=== PATIENT | female | born 1965 | race Caucasian/White ===

== ENCOUNTER 2020-12-25 11:59 | Outpatient (REF) | payer OTHER, SELFPAY ==
[2020-12-25 13:01] LABS: Hematocrit 41.8 % (37-47); Hemoglobin 11.9 g/dl (12.0-16.0); Mean Corpuscular HGB Conc 28.5 g/dl (31.0-35.0); Mean Corpuscular Hemoglobin 22.8 pg (27.0-33.0); Mean Corpuscular Volume 80.1 fL (80-98); Mean Platelet Volume 11.7 fL (9.4-12.3); Platelet Count 367 X10*3/uL (160-400); Red Blood Count 5.22 X10*6/uL (4.20-5.50); Red Cell Distribution Width 16.5 % (11.0-16.0); White Blood Count 10.2 X10*3/uL (4.8-10.8)
[2020-12-25 13:42] LABS: Estimated Average Glucose 200 mg/dL; Hemoglobin A1c % 8.6 %
[2020-12-25 13:57] LABS: Alanine Aminotransferase 11 U/L (0-31); Albumin Level 3.2 g/dL (3.5-5.0); Alkaline Phosphatase 207 U/L (39-117); Anion Gap 13 (12-20); Aspartate Amino Transferase 12 U/L (5-31); Bilirubin Direct < 0.2 mg/dL (0.0-0.5); Bilirubin Total 0.2 mg/dL (0.0-1.0); Blood Urea Nitrogen 19 mg/dL (9-16); Carbon Dioxide 30 mmol/L (22-29); Chloride 104 mmol/L (96-108); Cholesterol 192 mg/dL; Estimated Glomerular Filt Rate 47; Glucose Random 195 mg/dL (60-115); HDL Cholesterol 39 mg/dL; LDL Cholesterol Calculated 132 mg/dl; Potassium 4.9 mmol/L (3.3-5.1); Sodium 142 mmol/L (135-145); Total Protein 6.5 g/dL (6.5-8.0); Triglycerides 109 mg/dL
[2020-12-25 14:01] LABS: Thyroid Stimulating Hormone 2.08 uIU/mL (0.32-4.0)
[2020-12-25 14:25] LABS: Folate 7.4 ng/mL (> or = 4.0); Vitamin B12 504 pg/mL (200-900)
[2020-12-30 13:12] LABS: Vitamin D 25-OH, D2 <4 ng/mL; Vitamin D 25-OH, D3 11 ng/mL; Vitamin D 25-OH, Total 11 ng/mL (30-100)
== END 2020-12-25 12:00 | disposition home or self-care (01) ==
LOC: HO.LAB 11:59
PROVIDERS: PCP Internal Medicine; Visit Provider Internal Medicine
DX: E11.9 Type 2 diabetes mellitus without complications (principal)
CPT/HCPCS: 36415; 80048; 80061; 80076; 82306; 82607; 82746; 83036; 84443; 85027

== ENCOUNTER 2021-12-09 09:18 | Outpatient (REF) | payer OTHER, SELFPAY ==
[2021-12-09 09:41] LABS: MANUAL DIFF FLAG NO
[2021-12-09 10:18] LABS: Basophils Percent Auto 0.3 % (0-2); Eosinophils Absolute Auto 0.2 X10*3/uL (0.0-0.4); Eosinophils Percent Auto 1.9 % (0-4); Hematocrit 35.9 % (37.0-47.0); Hemoglobin 10.2 g/dl (12.0-16.0); Imm Gran Abs Auto 0.05 X10*3/uL (0.00-0.03); Imm Gran Pct Auto 0.5 % (0.0-0.4); Lymphocytes Absolute Auto 1.5 X10*3/uL (1.2-4.9); Lymphocytes Percent Auto 16.1 % (20-40); Mean Corpuscular HGB Conc 28.4 g/dl (31.0-35.0); Mean Corpuscular Hemoglobin 23.3 pg (27.0-33.0); Mean Corpuscular Volume 82.2 fL (80.0-98.0); Mean Platelet Volume 10.8 fL (9.4-12.3); Monocytes Absolute Auto 0.5 X10*3/uL (0.1-1.2); Monocytes Percent Auto 5.6 % (2-11); Neutrophils Absolute Auto 7.2 x10*3/uL (2.0-8.3); Neutrophils Percent Auto 75.6 % (45-73); Platelet Count 329 X10*3/uL (160-400); Red Blood Count 4.37 X10*6/uL (4.20-5.50); Red Cell Distribution Width 16.5 % (11.0-16.0); White Blood Count 9.5 X10*3/uL (4.8-10.8)
[2021-12-09 10:23] LABS: Estimated Average Glucose 128 mg/dL; Hemoglobin A1c % 6.1 %
[2021-12-09 11:00] LABS: Alanine Aminotransferase 7 U/L (0-31); Albumin Level 3.1 g/dL (3.5-5.0); Alkaline Phosphatase 145 U/L (39-117); Anion Gap 15 (12-20); Aspartate Amino Transferase 11 U/L (5-31); Bilirubin Direct < 0.2 mg/dL (0.0-0.5); Bilirubin Total 0.4 mg/dL (0.0-1.0); Blood Urea Nitrogen 21 mg/dL (9-16); Calcium 8.3 mg/dL (8.4-10.2); Carbon Dioxide 30 mmol/L (22-29); Chloride 104 mmol/L (96-108); Cholesterol 174 mg/dL; Estimated Glomerular Filt Rate 32; Glucose Fasting 105 mg/dL (60-99); HDL Cholesterol 40 mg/dL; LDL Cholesterol Calculated 115 mg/dl; Potassium 4.6 mmol/L (3.3-5.1); Sodium 144 mmol/L (135-145); Total Protein 6.7 g/dL (6.5-8.0); Triglycerides 98 mg/dL
[2021-12-09 11:05] LABS: Thyroid Stimulating Hormone 3.01 uIU/mL (0.32-4.0)
[2021-12-09 11:07] LABS: Creatinine Urine 79.02 mg/dL
== END 2021-12-09 09:19 | disposition home or self-care (01) ==
LOC: HO.LAB 09:18
PROVIDERS: Absent Provider Nurse Practitioner Family; PCP Internal Medicine; Visit Provider Internal Medicine
DX: E11.9 Type 2 diabetes mellitus without complications (principal); I10 Essential (primary) hypertension; E78.00 Pure hypercholesterolemia, unspecified; H43.12 Vitreous hemorrhage, left eye; Z79.4 Long term (current) use of insulin
CPT/HCPCS: 36415; 80048; 80053; 80061; 80076; 82043; 82248; 83036; 84443; 85025; 85027

== ENCOUNTER → 2022-01-08 09:16 | Outpatient (REF) | payer OTHER, SELFPAY | LOC: HO.SL 09:16 | PROVIDERS: PCP Internal Medicine; Visit Provider Nurse Practitioner Family | DX: Z13.89 Encounter for screening for other disorder (principal) ==

== ENCOUNTER 2022-11-25 15:03 | Outpatient (AMB) | payer OTHER, SELFPAY ==
--- NOTE | 2022-11-25 15:05 | A.OFFPC_ITS ---
Vital Signs 11/25/22 15:07 11/25/22 15:52 Height 5 ft 3 in Weight 345 lb BMI 61.1 BP 158/90 H 150/90 H Blood Pressure Location Lt radial Lt brachial Position Sitting Sitting Pulse 72 Pulse Source Pulse Oximeter Pulse Oximetry (%) 92 Oxygen Delivery Method Room Air Intake Visit Reasons: Transfer of care from Dr. Carrol Verduzco Note: Patient here transferring from Dr Richardson Elastic Attacher Coverstitch Required: No Accompanied by: Son Allergies hydralazine Adverse Reaction (Severe, Verified 11/25/22 15:29) water retention, bloating duloxetine Adverse Reaction (Severe, Uncoded 11/25/22 15:29) nausea Medication List - Last Reconciled 11/25/22 by Asia Ray MD amlodipine 10 mg PO DAILY 90 days atorvastatin 80 mg PO DAILY blood pressure monitor As directed blood sugar diagnostic (FreeStyle Lite Strips) As directed 3x daily blood sugar diagnostic (FreeStyle Precision Mj Strips) As directed blood-glucose meter (FreeStyle Lite Meter kit) As directed buspirone 5 mg PO BID cholecalciferol (vitamin D3) 50 mcg PO DAILY diaper,brief,adult,disposable (Briefs, Adult-Extra Large) Pull up Brief size XL - 4 daily ferrous sulfate 325 mg PO DAILY insulin aspart U-100 (Novolog U-100 Insulin aspart) 20 units (0.2 mL) subcut TID MDD 100u insulin glargine U-300 conc (Toujeo SoloStar U-300 Insulin) 30 units (0.1 mL) subcut BEDTIME 30 days lancets (FreeStyle Lancets) As directed 3x daily metoprolol succinate ER 50 mg PO DAILY miscellaneous medical supply 1 ea miscellaneous 8x daily; 30 days miscellaneous medical supply 1 pair of diabetic shoes with insoles miscellaneous; omeprazole 20 mg PO QAM [oxygen tubing As directed] [pulse oximeter As directed] quetiapine 25 mg PO BEDTIME Shower Chair As directed Tobacco use date assessed: 06/26/22 Dental Screening Dental Screen Date: 11/25/22 Did you have a dental visit in the last 12 months?: No Did you have a dental problem in the last 6 months where you did not have access to dental care?: No Was dental information given to patient?: Patient declined HPI HPI Comments History of Present Illness Details This is a 57-year-old female with diabetes mellitus type 2 on long-term current use of insulin, hypertension, hyperlipidemia, super super obesity and moderate major depression that comes today accompanied by her son for follow-up on her conditions. A1c is close to goal and her son would like her to see endocrinology. Blood pressure elevated and she complains that hydralazine cause edema which I think is amlodipine. I will discontinue amlodipine and restart hydralazine. Blood pressure will be recheck in 3 weeks by nurse navigator. Lipid panel was order and her LDL goal should be less than 70. She is super super obese with BMI of 61.1 and is interested in in weight loss surgery. Will be referred to weight management. No chest pain. Complains of dyspnea on exertion and use oxygen at night. Will be referred to pulmonology. [facility] Medical History (Updated 11/25/22 @ 15:54 by Asia Ray MD) Diabetes mellitus Surgical History History of ovarian cyst History of tubal ligation Family History Mother No problems noted. Father No problems noted. Social History Housing: House Alcohol intake: never Patient Tobacco Use Status: Never used Tobacco e-Cigarette/Vaping Use: Never Used Second Hand Smoke Exposure: No service: No Current occupational status: disabled Cognitive needs: Yes (cane) Hearing needs: No Vision needs: No Questionnaire PHQ-9 Over the last 2 weeks, how often have you been bothered by any of the following problems? 1. Little interest or pleasure in doing things: nearly every day 2. Feeling down, depressed, or hopeless: several days 3. Trouble falling or staying asleep, or sleeping too much: nearly every day 4. Feeling tired or having little energy: several days 5. Poor appetite or overeating: nearly every day 6. Feeling bad about yourself - or that you are a failure or have let yourself or your family down: nearly every day 7. Trouble concentrating on things, such as reading the newspaper or watching television: not at all 8. Moving or speaking so slowly that other people could have noticed. Or the opposite - being so fidgety or restless that you have been moving around a lot more than usual: not at all 9. Thoughts that you would be better off or of hurting yourself in some way: not at all Total score: 14 Depression Screening Interpretation: Positive Depression Screening Follow-up: Existing condition and In treatment 79492 - PHQ-9 Billing: Yes Source: Developed by Drs. Farhat Crane, Joe Levy and colleagues, with an educational keagan from [employer]. Thrive Questionnaire Date Thrive assessed: 05/29/22 CASANDRA-7 AMB Questionnaire CASANDRA-7 Date CASANDRA - 7 assessed: 11/25/22 Feeling nervous, anxious, or on edge: 3 = Nearly every day Not being able to stop or control worryin = Several days Worrying too much about different things: 2 = More than half the days Trouble relaxin = Not at all Being so restless that it is hard to sit still: 0 = Not at all Becoming easily annoyed or irritable: 0 = Not at all Feeling afraid as if something awful might happen: 1 = Several days Total CASANDRA-7 score (0-4 normal; 5-9 mild; 10-14 moderate; 15-21 severe): 7 Source: Developed by Drs. Farhat Crane, Joe Levy and colleagues, with an educational keagan from [employer]. CASANDRA-7 Assessment Billing CASANDRA-7 Assessment Tool: CASANDRA-7 Assessment 15182 Review of Systems Const All systems reviewed & are unremarkable except as noted in HPI and below Eyes Reports no additional complaints, Denies change in vision and Denies other visual disturbances Card Denies chest pain at rest, Denies chest pain with activity, Denies edema, Denies irregular heart rhythm, Denies claudication, Denies dyspnea, Denies dyspnea on exertion, Denies orthopnea, Denies paroxysmal nocturnal dyspnea and Denies slow heart rate Resp Denies cough, Denies dyspnea and Denies dyspnea on exertion GI Denies abdominal pain, Denies change in bowel habits, Denies excessive flatus, Denies nausea and Denies vomiting Denies urinary incontinence, Denies urinary hesitancy and Denies urinary urgency Musc Denies abnormal gait, Denies atrophy, Denies deformity and Denies limited range of motion Skin/Breast Denies bleeding lesions, Denies changing lesions and Denies rash Neuro Denies abnormal gait and Denies lack of coordination Physical exam (Primary Care) Vital Signs: Last Vital Signs Pulse 72 11/25/22 15:07 BP 158/90 H 11/25/22 15:07 Pulse Ox 92 11/25/22 15:07 Oxygen Delivery Method Room Air 11/25/22 15:07 BMI result Body Mass Index 61.1 Tobacco/Smoking Status: Tobacco use Status Tobacco use date assessed 06/26/22 11/25/22 15:06 Patient Tobacco Use Status Never used Tobacco 11/25/22 15:06 e-Cigarette/Vaping Use Never Used 11/25/22 15:06 PHQ-9: PHQ-9 Score PHQ-9: Total score 14 11/25/22 15:25 Depression Screening Interpretation: Positive Depression Screening Follow-up: Existing condition and In treatment Thrive Assessment: Date of Thrive Assessment Date Thrive assessed 05/29/22 11/25/22 15:06 Eyes General: appearance normal, both eyes and all related structures Eyelids: Yes eyelids normal Conjunctivae: conjunctivae normal Neck Neck: Yes normal visual inspection and Yes supple Resp Effort & Inspection: normal respiratory effort Auscultation: clear to auscultation bilaterally Cardio Jugular venous distension: no JVD Rate: regular rate Rhythm: regular rhythm Heart sounds: S1 normal heart sound present and S2 normal heart sound present Extrem General: Yes full ROM Results AMB Hemoglobin A1c AMB Hemoglobin A1c 7.3 % Last Edit by JUDI Pleitez on 11/25/22 15:2 6 Results Reviewed Results Reviewed: Laboratory Last Values Hgb A1c (Clinic) 7.3 % (4.0-6.0) H 11/25/22 15:26 Assessment and Plan Assessment & Plan (1) Type 2 diabetes mellitus: Code(s): E11.9 - Type 2 diabetes mellitus without complications Plan: Continue insulin. Referred to endocrinology. A1c goal is equal or less than 7%. (2) Super-super obese: Code(s): E66.01 - Morbid (severe) obesity due to excess calories Plan: Referred to weight management. BMI goal is less than 30. (3) Hypertension: Code(s): I10 - Essential (primary) hypertension Plan: Discontinue amlodipine. Restart hydralazine. Blood pressure goal is equal or less than 130/80. Recheck blood pressure with nurse navigator in 3 weeks. (4) Hyperlipidemia LDL goal <70: Code(s): E78.5 - Hyperlipidemia, unspecified Plan: Continue statins. Repeat lipid panel. LDL goal is less than 70. (5) Moderate major depression: Code(s): F32.1 - Major depressive disorder, single episode, moderate Plan: Continue Seroquel. Orders: Orders Vitamin B12 and Folate Today E53.8 - Deficiency of other specified B group vitamins IRON PROFILE Today D64.9 - Anemia, unspecified Lipid Panel Today E78.5 - Hyperlipidemia, unspecified Vitamin D 25-OH Total Today E55.9 - Vitamin D deficiency, unspecified Microalbumin, Random (w Creat) Today E11.9 - Type 2 diabetes mellitus without complications Complete Blood Count Auto Diff Today D64.9 - Anemia, unspecified NT-proBNP Today R60.0 - Localized edema XR DEXA axial skeleton Today N95.9 - Unspecified menopausal and perimenopausal disorder MM screening mammo BI Today R60.0 - Localized edema, Z12.31 - Encounter for screening mammogram for malignant neoplasm of breast AMB Hemoglobin A1c Today E11.9 - Type 2 diabetes mellitus without complications Referrals Endocrinology Referral E11.9 - Type 2 diabetes mellitus without complications Medical Weight Management Referral R60.0 - Localized edema ASSISTANT HALL DIRECTOR Referral Z12.4 - Encounter for screening for malignant neoplasm of cervix Pulmonology Referral Z99.81 - Dependence on supplemental oxygen Medications: New nystatin 1 appl topical BID 15 days PRN 30 grams 1RF rash Discontinued amlodipine Discontinued Reason: Patient Completed Course 10 mg PO DAILY 90 days 90 tabs 2RF I10 - Essential (primary) hypertension Coding Level of Care Code Est Pt Level 4 (17485) Diagnoses Type 2 diabetes mellitus E11.9 Super-super obese E66.01 Hypertension I10 Hyperlipidemia LDL goal <70 E78.5 Moderate major depression F32.1 Additional Codes CASANDRA-7 Assessment Billing - CASANDRA-7 Assessment Tool: CASANDRA-7 Assessment [id number] ([id number]) Time Spent (min) 26
[2022-11-25 15:07] VITALS: BP 158/90; PULSE 72; O2SAT 92; BMI 61.1
[2022-11-25 15:52] VITALS: BP 150/90
== END 2022-11-25 15:47 | disposition home or self-care (01) ==
PROVIDERS: PCP Internal Medicine; Visit Provider Internal Medicine
DX: E11.69 Type 2 diabetes mellitus with other specified complication (principal); E66.01 Morbid (severe) obesity due to excess calories; F32.1 Major depressive disorder, single episode, moderate; Z68.44 Body mass index [BMI] 60.0-69.9, adult; I10 Essential (primary) hypertension; E78.5 Hyperlipidemia, unspecified
CPT/HCPCS: 83036; 96127; 99214

== ENCOUNTER 2023-07-01 10:12 | Outpatient (REF) | payer OTHER, SELFPAY ==
[2023-07-01 10:25] LABS: MANUAL DIFF FLAG NO
[2023-07-01 11:02] LABS: Basophils Absolute Auto 0.1 X10*3/uL (0.0-0.2); Basophils Percent Auto 0.6 % (0-2); Eosinophils Absolute Auto 0.2 X10*3/uL (0.0-0.4); Eosinophils Percent Auto 2.8 % (0-4); Hematocrit 47.9 % (37.0-47.0); Hemoglobin 13.9 g/dl (12.0-16.0); Imm Gran Abs Auto 0.04 X10*3/uL (0.00-0.03); Imm Gran Pct Auto 0.5 % (0.0-0.4); Lymphocytes Absolute Auto 1.4 X10*3/uL (1.2-4.9); Lymphocytes Percent Auto 17.6 % (20-40); Mean Corpuscular Hemoglobin 25.2 pg (27.0-33.0); Mean Corpuscular Volume 86.9 fL (80.0-98.0); Mean Platelet Volume 11.6 fL (9.4-12.3); Monocytes Absolute Auto 0.5 X10*3/uL (0.1-1.2); Monocytes Percent Auto 6.8 % (2-11); Neutrophils Absolute Auto 5.7 x10*3/uL (2.0-8.3); Neutrophils Percent Auto 71.7 % (45-73); Platelet Count 294 X10*3/uL (160-400); Red Blood Count 5.51 X10*6/uL (4.20-5.50); Red Cell Distribution Width 14.9 % (11.0-16.0)
[2023-07-01 11:57] LABS: Cholesterol 354 mg/dL (<200); HDL Cholesterol 58 mg/dL (>40); Iron 47 mcg/dL (30-160); LDL Cholesterol Calculated 267 mg/dL (<100); Percent Iron Saturation 24 % (15-50); Total Iron Binding Capacity 198 mcg/dL (228-428); Triglycerides 147 mg/dL (<150); Unsaturated Iron Binding 151 ug/dL
[2023-07-01 12:02] LABS: Vitamin D 25-OH Total 8.6 ng/mL (>30)
[2023-07-01 12:13] LABS: Creatinine Urine 85.71 mg/dL
[2023-07-01 12:31] LABS: Microalbum/Creatinine Ratio Ur 2333.4 ug/mg cr (<30); Microalbumin Urine > 2000.0 mg/L
[2023-07-01 15:15] LABS: Vitamin B12 475 pg/mL (200-900)
[2023-07-06 23:08] LABS: NT-proBNP 276 pg/mL (<125)
== END 2023-07-01 10:13 | disposition home or self-care (01) ==
LOC: HO.LAB 10:12
PROVIDERS: PCP Internal Medicine; Visit Provider Internal Medicine
DX: E78.5 Hyperlipidemia, unspecified (principal); E11.9 Type 2 diabetes mellitus without complications; D64.9 Anemia, unspecified; E53.8 Deficiency of other specified B group vitamins; E55.9 Vitamin D deficiency, unspecified; R60.0 Localized edema
CPT/HCPCS: 36415; 80061; 82043; 82306; 82570; 82607; 82746; 83540; 83880; 85025

== ENCOUNTER 2023-07-08 14:14 | Outpatient (AMB) | payer OTHER, SELFPAY ==
--- NOTE | 2023-07-08 14:22 | A.OFFPC_ITS ---
Vital Signs 07/08/23 14:23 07/08/23 15:33 Height 5 ft 3 in Weight 333 lb BMI 59.0 BP 152/88 H 150/90 H Blood Pressure Location Lt brachial Lt brachial Position Sitting Sitting Intake Visit Reasons: BP F/U Intake Note: Patient here for a follow up BP, DM Hotel Attendant Required: No Accompanied by: Self / Same As Patient Allergies hydralazine Adverse Reaction (Severe, Verified 07/08/23 14:36) water retention, bloating duloxetine Adverse Reaction (Severe, Uncoded 07/08/23 14:36) nausea Medication List - Last Reconciled 07/08/23 by Asia Ray MD [adult pullups As directed] [adult wipes As directed] atorvastatin 80 mg PO DAILY [bedpads As directed] blood pressure monitor As directed blood sugar diagnostic (FreeStyle Lite Strips) As directed 3x daily blood-glucose meter (FreeStyle Lite Meter kit) As directed buspirone 5 mg PO BID disposable gloves As directed insulin aspart U-100 (Novolog U-100 Insulin aspart) 20 units (0.2 mL) subcut TID MDD 100u insulin glargine U-300 conc (Toujeo SoloStar U-300 Insulin) 30 units (0.1 mL) subcut BEDTIME 30 days lancets (FreeStyle Lancets) As directed 3x daily metoprolol succinate ER 50 mg PO DAILY 30 days miscellaneous medical supply 1 ea miscellaneous 8x daily; 30 days miscellaneous medical supply 1 pair of diabetic shoes with insoles miscellaneous; nystatin 1 appl topical BID PRN 15 days omeprazole 20 mg PO QAM [oxygen tubing As directed] [pulse oximeter As directed] quetiapine 25 mg PO BEDTIME Shower Chair As directed Tobacco use date assessed: 07/08/23 Dental Screening Dental Screen Date: 07/08/23 Did you have a dental visit in the last 12 months?: No Did you have a dental problem in the last 6 months where you did not have access to dental care?: No Was dental information given to patient?: Patient declined HPI HPI Comments History of Present Illness Details This is a 57-year-old female with moderate major depression, super super obese, diabetes mellitus, hypertension and hyperlipidemia that comes today for follow-up on her conditions. Depression stable with Seroquel. She is super super obese with a BMI of 59 and was not able to go to weight management or any other referral because she likes to go where her son and her son was not available. A1c elevated and I will add Ozempic. Blood pressure elevated and I will add losartan and this will be recheck in 3 weeks by nurse navigator. LDL not on goal but she admits that she was out of atorvastatin and just restarted 3 days ago. No chest pain or shortness of breath. Has microalbuminuria and will be referred again to Nephrology. [facility] Medical History (Updated 07/08/23 @ 15:38 by Asia Ray MD) Acute kidney injury superimposed on CKD Acute respiratory failure with hypoxia Vitreous hemorrhage of left eye Diabetes mellitus Surgical History History of ovarian cyst History of tubal ligation Family History Mother No problems noted. Father No problems noted. Social History Housing: House Alcohol intake: never Patient Tobacco Use Status: Never used Tobacco e-Cigarette/Vaping Use: Never Used Second Hand Smoke Exposure: No service: No Current occupational status: disabled Cognitive needs: Yes (cane) Hearing needs: No Vision needs: No Questionnaire PHQ-9 Over the last 2 weeks, how often have you been bothered by any of the following problems? 1. Little interest or pleasure in doing things: several days 2. Feeling down, depressed, or hopeless: several days 3. Trouble falling or staying asleep, or sleeping too much: several days 4. Feeling tired or having little energy: several days 5. Poor appetite or overeating: several days 6. Feeling bad about yourself - or that you are a failure or have let yourself or your family down: several days 7. Trouble concentrating on things, such as reading the newspaper or watching television: not at all 8. Moving or speaking so slowly that other people could have noticed. Or the opposite - being so fidgety or restless that you have been moving around a lot more than usual: not at all 9. Thoughts that you would be better off or of hurting yourself in some way: not at all Total score: 6 Depression Screening Interpretation: Positive Depression Screening Follow-up: Existing condition Depression Screening Done: Yes 54829 - PHQ-9 Billing: Yes Source: Developed by Drs. Farhat Crane, Stefania Whitman, Joe Olivarez and colleagues, with an educational keagan from [employer]. Thrive Questionnaire Date Thrive assessed: 07/08/23 I am a: Patient What is your living situation today?: I have a steady place to live Within the past 12 months, did the food you bought not last and you didn't have the money to get more?: Never true Within the past 12 months, did you worry whether your food would run out before you got money to buy more?: Never true Do you have trouble paying for medicines?: No Do you have trouble getting transportation to medical appointments?: No Do you have trouble paying your heating and electricity bill?: No Do you have trouble taking care of your child, family member or friend?: No Do you have trouble with day-to-day activities such as bathing, preparing meals, shopping, managing finances, etc.?: Yes Are you currently unemployed and looking for a job?: No Are you interested in more education?: No Please select the resources that you would like help with: None Currently or been in a relationship where the following occur: no concerns rep orted THRIVE Score: 0 AUDIT C Alcohol Use Questionnaire (AUDIT-C) 1. How often do you have a drink containing alcohol?: Never Total Score: 0 CASANDRA-7 AMB Questionnaire CASANDRA-7 Date CASANDRA - 7 assessed: 07/08/23 Feeling nervous, anxious, or on edge: 1 = Several days Not being able to stop or control worryin = Not at all Worrying too much about different things: 1 = Several days Trouble relaxin = Not at all Being so restless that it is hard to sit still: 0 = Not at all Becoming easily annoyed or irritable: 0 = Not at all Feeling afraid as if something awful might happen: 1 = Several days Total CASANDRA-7 score (0-4 normal; 5-9 mild; 10-14 moderate; 15-21 severe): 3 Source: Developed by Stefania Price J Carlos, Joe Olivarez and colleagues, with an educational keagan from [employer]. CASANDRA-7 Assessment Billing CASANDRA-7 Assessment Tool: CASANDRA-7 Assessment 37460 Review of Systems Const All systems reviewed & are unremarkable except as noted in HPI and below Eyes Reports no additional complaints, Denies change in vision and Denies other visual disturbances Card Denies chest pain at rest, Denies chest pain with activity, Denies edema, Denies irregular heart rhythm, Denies claudication, Denies dyspnea, Denies dyspnea on exertion, Denies orthopnea, Denies paroxysmal nocturnal dyspnea and Denies slow heart rate Resp Denies cough, Denies dyspnea and Denies dyspnea on exertion GI Denies abdominal pain, Denies change in bowel habits, Denies excessive flatus, Denies nausea and Denies vomiting Denies urinary incontinence, Denies urinary hesitancy and Denies urinary urgency Musc Denies abnormal gait, Denies atrophy, Denies deformity and Denies limited range of motion Skin/Breast Denies bleeding lesions, Denies changing lesions and Denies rash Neuro Denies abnormal gait, Denies behavioral changes and Denies lack of coordination Psych Denies behavioral changes Physical exam (Primary Care) Vital Signs: Last Vital Signs BP 152/88 H 07/08/23 14:23 BMI result Body Mass Index 59.0 Tobacco/Smoking Status: Tobacco use Status Tobacco use date assessed 07/08/23 07/08/23 14:30 Patient Tobacco Use Status Never used Tobacco 07/08/23 14:30 e-Cigarette/Vaping Use Never Used 07/08/23 14:30 PHQ-9: PHQ-9 Score PHQ-9: Total score 6 07/08/23 14:47 Depression Screening Interpretation: Positive Depression Screening Follow-up: Existing condition Thrive Assessment: Date of Thrive Assessment Date Thrive assessed 07/08/23 07/08/23 14:30 Currently or been in a relationship where the following occur: no concerns reported Eyes General: appearance normal, both eyes and all related structures Eyelids: Yes eyelids normal Conjunctivae: conjunctivae normal Neck Neck: Yes normal visual inspection and Yes supple Resp Effort & Inspection: normal respiratory effort Auscultation: clear to auscultation bilaterally Cardio Jugular venous distension: no JVD Rate: regular rate Rhythm: regular rhythm Heart sounds: S1 normal heart sound present and S2 normal heart sound present Extrem General: Yes full ROM Results AMB Hemoglobin A1c AMB Hemoglobin A1c 7.6 % Last Edit by JUDI Pleitez on 07/08/23 14:3 4 Results Reviewed Results Reviewed: Laboratory Last Values Hgb A1c (Clinic) 7.6 % (4.0-6.0) H 07/08/23 14:33 Assessment and Plan Assessment & Plan (1) Moderate major depression: Code(s): F32.1 - Major depressive disorder, single episode, moderate Plan: Continue Seroquel. (2) Super-super obese: Code(s): E66.01 - Morbid (severe) obesity due to excess calories Plan: Start diet and exercise as tolerated. BMI goal is less than 30. (3) Essential hypertension: Code(s): I10 - Essential (primary) hypertension Plan: Start losartan. Blood pressure goal is equal or less than 130/80. Recheck blood pressure with nurse navigator in 3 weeks. (4) Microalbuminuria: Code(s): R80.9 - Proteinuria, unspecified Plan: Referred to nephrology. (5) Type 2 diabetes mellitus: Code(s): E11.9 - Type 2 diabetes mellitus without complications Qualifiers: Diabetes mellitus car wash attendant automatic insulin use: with retirement use Diabetes mellitus complication status: with hyperglycemia Qualified Code(s): E11.65 - Type 2 diabetes mellitus with hyperglycemia; Z79.4 - detention (current) use of insulin Plan: Continue insulin. Start Ozempic. A1c goal is equal or less than 7%. (6) Hyperlipidemia LDL goal <70: Code(s): E78.5 - Hyperlipidemia, unspecified Plan: Be compliant with statins. LDL goal is less than 70. Orders: Orders AMB Hemoglobin A1c Today E11.9 - Type 2 diabetes mellitus without complications Microalbumin, Random (w Creat) 4 Months E11.9 - Type 2 diabetes mellitus without complications Lipid Panel 4 Months E78.5 - Hyperlipidemia, unspecified Comprehensive [place]. Panel Fast 4 Months I10 - Essential (primary) hypertension Referrals Nephrology Referral R80.9 - Proteinuria, unspecified Medications: New losartan 25 mg PO DAILY 90 days 90 tabs 1RF I10 - Essential (primary) hypertension semaglutide (Ozempic) for 4 weeks 0.25 mg (0.368 mL) subcut QWEEK 28 days 1.472 mL 0RF E11.9 - Type 2 diabetes mellitus without complications Refilled nystatin 1 appl topical BID 15 days PRN 30 grams 1RF rash Coding Level of Care Code Est Pt Level 4 (86565) Diagnoses Moderate major depression F32.1 Super-super obese E66.01 Essential hypertension I10 Microalbuminuria R80.9 Type 2 diabetes mellitus with hyperglycemia, with long-term current use of insulin E11.65; Z79.4 Diabetes mellitus car wash attendant automatic insulin use: with car wash attendant automatic use Diabetes mellitus complication status: with hyperglycemia Hyperlipidemia LDL goal <70 E78.5 Additional Codes CASANDRA-7 Assessment Billing - CASANDRA-7 Assessment Tool: CASANDRA-7 Assessment [id number] ([id number]) Time Spent (min) 24
[2023-07-08 14:23] VITALS: BP 152/88; BMI 59.0
[2023-07-08 15:33] VITALS: BP 150/90
== END 2023-07-08 14:51 | disposition home or self-care (01) ==
PROVIDERS: PCP Internal Medicine; Visit Provider Internal Medicine
DX: E11.65 Type 2 diabetes mellitus with hyperglycemia (principal); F32.1 Major depressive disorder, single episode, moderate; E66.01 Morbid (severe) obesity due to excess calories; Z68.43 Body mass index [BMI] 50.0-59.9, adult; Z79.4 Long term (current) use of insulin; I10 Essential (primary) hypertension; R80.9 Proteinuria, unspecified; E78.5 Hyperlipidemia, unspecified
CPT/HCPCS: 83036; 99214

== ENCOUNTER 2023-08-04 10:49 | Outpatient (AMB) | payer OTHER, SELFPAY ==
[2023-08-04 10:52] VITALS: BP 140/90; PULSE 85; BMI 56.6
--- NOTE | 2023-08-04 10:52 | HO.NEPHOV_ITS ---
HPI HPI Comments History of Present Illness Details I had the privilege of seeing Almaz in consultation for her chronic kidney disease and hypertension. She has a diabetic over 30 years. She has history of retinopathy and had laser treatments. She is known to have proteinuria. She is on angiotensin receptor ervin. She does not check her blood pressure at home. Her blood sugars are fair. She is trying to lose some weight. She denies any coronary artery disease, carotid stenosis, CVA, congestive heart failure, peripheral arterial disease, history of renal artery stenosis. She does not take any nonsteroidal anti-inflammatories. She has no history of hypercalcemia, new bone or back pain. She denies epistaxis, photosensitivity, skin rashes, orthostatic symptoms, nausea, vomiting, diarrhea, proximal nocturnal dyspnea, orthopnea, nephrolithiasis. Her recent serum creatinine was 1.67. [facility] Medical History (Updated 08/04/23 @ 13:11 by Dani Perkins MD) Acute kidney injury superimposed on CKD Acute respiratory failure with hypoxia Vitreous hemorrhage of left eye Diabetes mellitus Surgical History History of ovarian cyst History of tubal ligation Family History Mother No problems noted. Father No problems noted. Social History Housing: House Alcohol intake: never Patient Tobacco Use Status: Never used Tobacco e-Cigarette/Vaping Use: Never Used Second Hand Smoke Exposure: No service: No Current occupational status: disabled Cognitive needs: Yes (cane) Hearing needs: No Vision needs: No Vital Signs 08/04/23 10:52 Height 5 ft 3 in Weight 319 lb 8 oz BMI 56.6 BP 140/90 H Blood Pressure Location Lt radial Position Sitting Pulse 85 Pulse Source Pulse Oximeter Physical Exam Vital Signs: Last Vital Signs Pulse 85 08/04/23 10:52 BP 140/90 H 08/04/23 10:52 BMI result Body Mass Index 56.6 Const General: comfortable and no acute distress Orientation/consciousness: patient oriented x3 HEENT Head: Yes normocephalic Mouth: Normal oral and palatal mucosa present Eyes EOM: EOMs intact bilaterally Neck Neck: Yes supple Resp Auscultation: clear to auscultation bilaterally Cardio Jugular venous distension: no JVD Rate: regular rate GI Palpation (GI): Soft to palpation Auscultation: normal bowel sounds General: Yes no CVA tenderness Back/Spine/Pelvis Back: no CVA tenderness Skin General skin exam: no rashes or lesions noted Neuro General: patient oriented x3 and moves all extremities Assessment & Plan Assessment & Plan (1) CKD stage 3a, GFR 45-59 ml/min: Code(s): N18.31 - Chronic kidney disease, stage 3a (2) Hypertension: Code(s): I10 - Essential (primary) hypertension Qualifiers: Hypertension type: primary hypertension Qualified Code(s): I10 - Essential (primary) hypertension (3) Diabetic nephropathy: Code(s): E11.21 - Type 2 diabetes mellitus with diabetic nephropathy Qualifiers: Diabetes mellitus type: type 2 Qualified Code(s): E11.21 - Type 2 diabetes mellitus with diabetic nephropathy Plan 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 She has high BMI. She has diabetic nephropathy. She is on losartan. I have ordered workup including imaging studies. She will be a great candidate for SGLT 2 inhibitor which I intend to initiate at the next office visit after reviewing all the data. She was encouraged to maintain good hydration, lose weight and avoid nonsteroidal anti-inflammatories. I answered all questions. Follow-up appointment given. Orders: Orders Creatinine Today E11.21 - Type 2 diabetes mellitus with diabetic nephropathy, N18.31 - Chronic kidney disease, stage 3a Blood Urea Nitrogen Today E11.21 - Type 2 diabetes mellitus with diabetic nephropathy, N18.31 - Chronic kidney disease, stage 3a Electrolytes Today E11.21 - Type 2 diabetes mellitus with diabetic nephropathy, N18.31 - Chronic kidney disease, stage 3a Calcium Today E11.21 - Type 2 diabetes mellitus with diabetic nephropathy, N18.31 - Chronic kidney disease, stage 3a Proteinase 3 PR3 Antibodies Today E11.21 - Type 2 diabetes mellitus with diabetic nephropathy, N18.31 - Chronic kidney disease, stage 3a Anti Glomerular Basement Memb Today E11.21 - Type 2 diabetes mellitus with diabetic nephropathy, N18.31 - Chronic kidney disease, stage 3a Complement C4 Today E11.21 - Type 2 diabetes mellitus with diabetic nephropathy, N18.31 - Chronic kidney disease, stage 3a Immunofixation Pnl, Serum Today E11.21 - Type 2 diabetes mellitus with diabetic nephropathy, N18.31 - Chronic kidney disease, stage 3a UA and rflx microscopic Today E11.21 - Type 2 diabetes mellitus with diabetic nephropathy, N18.31 - Chronic kidney disease, stage 3a Anti DNA DS Antibody Today E11.21 - Type 2 diabetes mellitus with diabetic nephropathy, N18.31 - Chronic kidney disease, stage 3a Myeloperoxidase Antibody Today E11.21 - Type 2 diabetes mellitus with diabetic nephropathy, N18.31 - Chronic kidney disease, stage 3a Complement C3 Today E11.21 - Type 2 diabetes mellitus with diabetic nephropathy, N18.31 - Chronic kidney disease, stage 3a Phospholipase A2 Receptor Pnl Today E11.21 - Type 2 diabetes mellitus with diabetic nephropathy, N18.31 - Chronic kidney disease, stage 3a Immunofixation, Random Urine Today E11.21 - Type 2 diabetes mellitus with diabetic nephropathy, N18.31 - Chronic kidney disease, stage 3a US renal BI Today E11.21 - Type 2 diabetes mellitus with diabetic nephropathy, I10 - Essential (primary) hypertension, N18.31 - Chronic kidney disease, stage 3a Coding Level of Care Code New Pt Level 4 (72758) Diagnoses CKD stage 3a, GFR 45-59 ml/min N18.31 Primary hypertension I10 Hypertension type: primary hypertension Diabetic nephropathy associated with type 2 diabetes mellitus E11. Diabetes mellitus type: type 2 Results Reviewed Nephrology Results: Hgb 13.9 g/dl (12.0-16.0) 07/01/23 WBC 8.0 X10*3/uL (4.8-10.8) 07/01/23 Plt Count 294 X10*3/uL (160-400) 07/01/23 Urine Creatinine 85.71 mg/dL 07/01/23
== END 2023-08-04 11:25 | disposition home or self-care (01) ==
PROVIDERS: PCP Internal Medicine; Referring Provider Internal Medicine; Visit Provider Internal Medicine Nephrology
DX: N18.31 Chronic kidney disease, stage 3a (principal); I10 Essential (primary) hypertension; E11.21 Type 2 diabetes mellitus with diabetic nephropathy
CPT/HCPCS: 99204

== ENCOUNTER → 2023-08-04 10:49 | Outpatient (BNVA) | payer OTHER, SELFPAY | PROVIDERS: PCP Internal Medicine; Referring Provider Internal Medicine; Visit Provider Internal Medicine Nephrology | DX: E11.22 Type 2 diabetes mellitus with diabetic chronic kidney disease (principal); I12.9 Hypertensive chronic kidney disease with stage 1 through stage 4 chronic kidney disease, or unspecified chronic kidney disease; N18.32 Chronic kidney disease, stage 3b; E11.21 Type 2 diabetes mellitus with diabetic nephropathy | CPT/HCPCS: 99202 ==

== ENCOUNTER 2024-01-18 09:59 | Outpatient (REF) | payer OTHER, SELFPAY ==
[2024-01-18 12:06] LABS: Alanine Aminotransferase 17 U/L (0-31); Alkaline Phosphatase 212 U/L (39-117); Anion Gap 13 (12-20); Aspartate Amino Transferase 17 U/L (5-31); Bilirubin Total 0.2 mg/dL (0.0-1.0); Blood Urea Nitrogen 17 mg/dL (9-16); Calcium 8.5 mg/dL (8.4-10.2); Carbon Dioxide 27 mmol/L (22-29); Chloride 109 mmol/L (96-108); Cholesterol 200 mg/dL (<200); Estimated Glomerular Filt Rate 24; Glucose Fasting 172 mg/dL (60-99); HDL Cholesterol 44 mg/dL (>40); LDL Cholesterol Calculated 134 mg/dL (<100); Potassium 4.4 mmol/L (3.3-5.1); Sodium 145 mmol/L (135-145); Total Protein 7.1 g/dL (6.5-8.0); Triglycerides 111 mg/dL (<150)
[2024-01-18 12:06] LABS: Creatinine Urine 155.89 mg/dL
[2024-01-18 12:13] LABS: Microalbum/Creatinine Ratio Ur 1282.9 ug/mg cr (<30); Microalbumin Urine > 2000.0 mg/L
== END 2024-01-18 10:00 | disposition home or self-care (01) ==
LOC: HO.LAB 09:59
PROVIDERS: PCP Internal Medicine; Visit Provider Internal Medicine
DX: E11.9 Type 2 diabetes mellitus without complications (principal); E78.5 Hyperlipidemia, unspecified; I10 Essential (primary) hypertension
CPT/HCPCS: 36415; 80053; 80061; 82043; 82570

== ENCOUNTER 2024-05-21 09:46 | Outpatient (REF) | payer OTHER, SELFPAY | END 2024-05-21 09:47 | disposition home or self-care (01) | LOC: HO.MAMMO 09:46 | PROVIDERS: PCP Internal Medicine; Visit Provider Internal Medicine | DX: Z12.31 Encounter for screening mammogram for malignant neoplasm of breast (principal) | CPT/HCPCS: 77063; 77067 ==

== ENCOUNTER → 2024-05-21 10:15 | Outpatient (BNV) | payer OTHER, SELFPAY | PROVIDERS: PCP Internal Medicine; Visit Provider Internal Medicine | DX: Z12.31 Encounter for screening mammogram for malignant neoplasm of breast (principal) | CPT/HCPCS: 77063; 77067 ==

== ENCOUNTER 2024-10-12 10:32 | Outpatient (AMB) | payer OTHER, SELFPAY ==
[2024-10-12 10:36] VITALS: BP 132/78; PULSE 68; O2SAT 94; BMI 51.4
--- NOTE | 2024-10-12 10:36 | A.OFFPC_ITS ---
Vital Signs 10/12/24 10:36 Height 5 ft 3 in Weight 290 lb BMI 51.4 BP 132/78 Blood Pressure Location Lt brachial Position Sitting Pulse 68 Pulse Source Pulse Oximeter Pulse Oximetry (%) 94 Oxygen Delivery Method Room Air Intake Visit Reasons: follow up Intake Note: Patient here for a follow up, c/o leg cramps Sql Server Architect Required: No Accompanied by: BASKET ASSEMBLER Allergies hydralazine Adverse Reaction (Severe, Verified 10/12/24 10:56) water retention, bloating duloxetine Adverse Reaction (Severe, Uncoded 10/12/24 10:56) nausea Medication List - Last Reconciled 10/12/24 by Asia Ray MD [adult pullups As directed] [adult wipes As directed] atorvastatin 80 mg PO DAILY [Bariatric Walker As directed] [Bariatric Wheelchair As directed] [bedpads As directed] blood pressure monitor As directed blood sugar diagnostic (FreeStyle Lite Strips) As directed 3x daily blood-glucose meter (FreeStyle Lite Meter kit) As directed buspirone 5 mg PO BID dapagliflozin propanediol (Farxiga) 10 mg PO DAILY disposable gloves As directed insulin aspart U-100 (Novolog U-100 Insulin aspart) 20 units (0.2 mL) subcut TID MDD 100u insulin glargine U-300 conc (Toujeo SoloStar U-300 Insulin) 30 units (0.1 mL) subcut BEDTIME 30 days lactulose 10 grams (15 mL) PO BEDTIME PRN 30 days lancets (FreeStyle Lancets) As directed 3x daily losartan 50 mg PO DAILY 90 days metoprolol succinate ER 50 mg PO DAILY 30 days miscellaneous medical supply 1 ea miscellaneous 8x daily; 30 days miscellaneous medical supply 1 pair of diabetic shoes with insoles miscellaneous; omeprazole 20 mg PO QAM [oxygen tubing As directed] [pulse oximeter As directed] quetiapine 25 mg PO BEDTIME Shower Chair As directed torsemide 20 mg PO DAILY Tobacco use date assessed: 10/12/24 Dental Screening Dental Screen Date: 10/12/24 Did you have a dental visit in the last 12 months?: No Did you have a dental problem in the last 6 months where you did not have access to dental care?: No Was dental information given to patient?: Patient declined HPI HPI Comments History of Present Illness Details The patient is a 59-year-old female presenting with uncontrolled Type 2 Diabetes Mellitus and vision impairment. The patient's diabetes has worsened, with a recent hemoglobin A1c of 11.7, up from a previous level of 7. She reports significant weight loss, which was unintentional, and attributes it to poor glycemic control. Her blood glucose levels have been as high as 400 mg/dL, and she is currently on NovoLog and Toujeo insulin regimens. The patient also reports vision impairment, which she associates with her poorly controlled diabetes. She receives injections in her eyes every three months and has an upcoming appointment for further evaluation. She has a history of hypertension, currently managed with losartan and metoprolol. Her blood pressure is reportedly well-controlled. The patient has chronic kidney disease, and her renal function will be re- evaluated. She reports restrictive lung disease, possibly related to her weight, and uses home oxygen therapy. She has not seen a poultry farmer meat but will be referred for further evaluation. The patient experiences constipation and muscle cramps, for which lactulose and magnesium supplementation are planned. She has allergies to hydralazine and duloxetine, which cause water retention and nausea, respectively. [facility] Medical History (Updated 10/12/24 @ 11:11 by Asia Ray MD) Acute kidney injury superimposed on CKD Acute respiratory failure with hypoxia Vitreous hemorrhage of left eye Diabetes mellitus Surgical History History of ovarian cyst History of tubal ligation Family History Mother No problems noted. Father No problems noted. Social History Housing: House Alcohol intake: never Patient Tobacco Use Status: Never used Tobacco e-Cigarette/Vaping Use: Never Used Second Hand Smoke Exposure: No service: No Current occupational status: disabled Cognitive needs: Yes (cane) Hearing needs: No Vision needs: No Questionnaire Thrive Questionnaire Date Thrive assessed: 07/08/23 CASANDRA-7 AMB Questionnaire CASANDRA-7 Date CASANDRA - 7 assessed: 07/08/23 Source: Developed by Drs. Farhat Crane, Stefania Whitman, Joe Olivarez and colleagues, with an educational keagan from [employer]. Review of Systems Const All systems reviewed & are unremarkable except as noted in HPI and below Card Denies chest pain at rest, Denies chest pain with activity, Denies edema, Denies irregular heart rhythm, Denies claudication, Denies dyspnea, Denies dyspnea on exertion, Denies orthopnea, Denies paroxysmal nocturnal dyspnea and Denies slow heart rate Resp Denies cough, Denies dyspnea and Denies dyspnea on exertion GI Denies abdominal pain, Denies change in bowel habits, Denies excessive flatus, Denies nausea and Denies vomiting Denies urinary incontinence, Denies urinary hesitancy and Denies urinary urgency Musc Denies abnormal gait, Denies atrophy, Denies deformity and Denies limited range of motion Skin/Breast Denies bleeding lesions, Denies changing lesions and Denies rash Neuro Denies abnormal gait, Denies behavioral changes and Denies lack of coordination Psych Denies behavioral changes Physical exam (Primary Care) Vital Signs: Last Vital Signs Pulse 68 10/12/24 10:36 BP 132/78 10/12/24 10:36 Pulse Ox 94 10/12/24 10:36 Oxygen Delivery Method Room Air 10/12/24 10:36 BMI result Body Mass Index 51.4 BMI Assessment/Plan discussion: High BMI High, discussed plan: lifestyle, weight reduction, dietary and physical activity Tobacco/Smoking Status: Tobacco use Status Tobacco use date assessed 10/12/24 10/12/24 10:54 Patient Tobacco Use Status Never used Tobacco 10/12/24 10:54 e-Cigarette/Vaping Use Never Used 10/12/24 10:54 Thrive Assessment: Date of Thrive Assessment Date Thrive assessed 07/08/23 10/12/24 10:54 Resp Effort & Inspection: normal respiratory effort Auscultation: clear to auscultation bilaterally Cardio Jugular venous distension: no JVD Rate: regular rate Rhythm: regular rhythm Heart sounds: S1 normal heart sound present and S2 normal heart sound present Extrem General: Yes full ROM Results AMB Hemoglobin A1c AMB Hemoglobin A1c 11.7 % Last Edit by JUDI Pleitez on 10/12/24 10: 54 Results Reviewed Results Reviewed: Laboratory Last Values Hgb A1c (Clinic) 11.7 % (4.0-6.0) H 10/12/24 10:35 Coding Level of Care Code Est Pt Level 4 (05762) Complex EM visit Add On G2211 Diagnoses Obesity hypoventilation syndrome E66.2 Uncontrolled type 2 diabetes mellitus with hyperglycemia, with long-term current use of insulin E11.65; Z79.4 Muscle cramps R25.2 Oxygen dependent Z99.81 Essential hypertension I10 Hyperlipidemia LDL goal <70 E78.5 Moderate major depression F32.1 Super-super obese E66.01 CKD (chronic kidney disease) stage 4, GFR 15-29 ml/min N18.4 Time Spent (min) 25 Assessment & Plan Assessment & Plan (1) Obesity hypoventilation syndrome: Code(s): E66.2 - Morbid (severe) obesity with alveolar hypoventilation Category: Medical (2) Uncontrolled type 2 diabetes mellitus with hyperglycemia, with long-term current use of insulin: Code(s): E11.65 - Type 2 diabetes mellitus with hyperglycemia; Z79.4 - terminal computer operator (current) use of insulin Category: Medical (3) Muscle cramps: Code(s): R25.2 - Cramp and spasm Category: Medical (4) Oxygen dependent: Code(s): Z99.81 - Dependence on supplemental oxygen Category: Medical (5) Essential hypertension: Code(s): I10 - Essential (primary) hypertension Category: Medical (6) Hyperlipidemia LDL goal <70: Code(s): E78.5 - Hyperlipidemia, unspecified Category: Medical (7) Moderate major depression: Code(s): F32.1 - Major depressive disorder, single episode, moderate Category: Medical (8) Super-super obese: Code(s): E66.01 - Morbid (severe) obesity due to excess calories Category: Medical (9) CKD (chronic kidney disease) stage 4, GFR 15-29 ml/min: Code(s): N18.4 - Chronic kidney disease, stage 4 (severe) Category: Medical Plan The patient's uncontrolled Type 2 Diabetes Mellitus requires an increase in insulin dosage, specifically increasing Toujeo from 30 to 40 units daily. She will be referred to endocrinology for further management of her diabetes. For her vision impairment, the patient will continue with her regular eye injections and will be referred to ophthalmology for further evaluation. Her hypertension management will continue with losartan and metoprolol, as her blood pressure is well-controlled. The patient's chronic kidney disease will be monitored with upcoming blood work to assess renal function. She will be referred to a poultry farmer meat to evaluate her restrictive lung disease and the need for home oxygen therapy. For constipation, lactulose will be prescribed as needed, and magnesium supplementation will be provided to address muscle cramps. Patient was informed and verbally consented to the use of an ambient scribe for clinic note documentation during this visit. I discussed with the patient the need to increase her insulin dosage due to her uncontrolled diabetes and referred her to endocrinology for specialized care. We talked about her vision issues, and I recommended continuing her eye injections and seeing an foot setter for further evaluation. I also advised her to maintain her current hypertension medications as her blood pressure is stable. We will monitor her kidney function with upcoming blood work and refer her to a poultry farmer meat for her lung condition. For her constipation and muscle cramps, I will prescribe lactulose and magnesium, respectively. Orders: Orders Microalbumin, Random (w Creat) Today R80.9 - Proteinuria, unspecified Comprehensive [place]. Panel Fast Today E11.65 - Type 2 diabetes mellitus with hyperglycemia, Z79.4 - terminal computer operator (current) use of insulin Magnesium Today R25.2 - Cramp and spasm Lipid Panel Today E78.5 - Hyperlipidemia, unspecified Complete Blood Count Auto Diff Today D64.9 - Anemia, unspecified Vitamin B12 and Folate Today E53.8 - Deficiency of other specified B group vitamins Vitamin D 25-OH Total Today E55.9 - Vitamin D deficiency, unspecified IRON PROFILE Today D64.9 - Anemia, unspecified AMB Hemoglobin A1c Today E11.65 - Type 2 diabetes mellitus with hyperglycemia, Z79.4 - group home (current) use of insulin Referrals Endocrinology Referral E11.65 - Type 2 diabetes mellitus with hyperglycemia, Z79.4 - terminal computer operator (current) use of insulin Pulmonology Referral E66.2 - Morbid (severe) obesity with alveolar hypoventilation, Z99.81 - Dependence on supplemental oxygen Ophthalmology Referral E11.65 - Type 2 diabetes mellitus with hyperglycemia, Z79.4 - group home (current) use of insulin Medications: New [adult pullups] As directed 240 ea 11RF R32 - Unspecified urinary incontinence magnesium citrate 125 mg PO BEDTIME 90 days 90 caps 1RF dapagliflozin propanediol (Farxiga) 10 mg PO DAILY 90 days 90 tabs 1RF torsemide 20 mg PO DAILY 90 days 90 tabs 1RF Changed From insulin glargine U-300 conc (Toujeo SoloStar U-300 Insulin) 30 units (0.1 mL) subcut BEDTIME 30 days 3 mL 1RF E11.9 - Type 2 diabetes mellitus without complications To insulin glargine U-300 conc (Toujeo SoloStar U-300 Insulin) 40 units (0.1333 mL) subcut BEDTIME 90 days 11.997 mL 2RF E11.9 - Type 2 diabetes mellitus without complications Refilled insulin aspart U-100 (Novolog U-100 Insulin aspart) 20 units (0.2 mL) subcut TID 20 mL 6RF MDD 100u E11.9 - Type 2 diabetes mellitus without complications lactulose 10 grams (15 mL) PO BEDTIME 30 days PRN 237 mL 2RF constipation [bedpads] As directed 90 ea 12RF R32 - Unspecified urinary incontinence losartan 50 mg PO DAILY 90 days 90 tabs 1RF Patient Instructions: - Increase Toujeo insulin to 40 units daily. - Continue regular eye injections and attend ophthalmology appointment. - Maintain current blood pressure medications. - Complete blood work as ordered to monitor kidney function. - Follow up with poultry farmer meat for lung evaluation. - Use lactulose as needed for constipation and take magnesium for cramps.
--- OUTSIDE RECORDS SUMMARY | 2024-10-12 11:58 | XMS_ITS | Clinical Summary ---
Author Organization [facility], Address [address] [place] [address] [place] [address] Phone Care Team Providers Care Risk Management Professional Name Role Phone Stevo Agrawal NP Primary Care Provider Allergies No known active allergies Medications labetalol (NORMODYNE) 200 MG tablet Take 1 tablet (200 mg total) by mouth in the morning and 1 tablet (200 mg total) in the evening and 1 tablet (200 mg total) before bedtime. 90 tablet 5 12/30/2021 Active Active Problems Problem Noted Date Diagnosed Date Stage 3a chronic kidney disease 12/30/2021 Renal disorder due to type 2 diabetes mellitus 0 12/30/2021 Obesity 12/30/2021 Essential (primary) hypertension 12/30/2021 Hypertensive urgency 12/23/2021 Family History Medical History Relation Comments Diabetes Child Cancer Father Diabetes Father Hypertension Father Relation Status Comments Child Father Mother Social History Tobacco Use Types Packs/Day Years Used Date Smoking Tobacco: Never Alcohol Use Standard Drinks/Week Comments No 0 (1 standard drink = 0.6 oz pur e alcohol) Comments Unknown Sex and Gender Information Value Date Recorded Sex Assigned at Not on file Legal Sex Female 3:29 PM EDT Gender Identity Not on file Sexual Orientation Not on file Plan of Treatment Health Maintenance Due Date Last Done Comments Breast Cancer Screening 1965 Colorectal Cancer Screening: Annual FOBT 08/09/2012 Colorectal Cancer Screening: Colonoscopy 08/09/2012 Colorectal Cancer Screening: Sigmoidoscopy 08/09/2012 Pneumococcal Vaccine: 50+ Ye ars (2 of 2 - PCV) 06/04/2019 06/04/2018 Diabetes: Ophthalmology Exam 12/30/2021 Diabetes: Pedal Pulse Checked 12/30/2021 Diabetes: Sensory Foot Exam 12/30/2021 Diabetes: Visual Foot Exam 12/30/2021 Diabetes: Hemoglobin A1C 04/01/2022 12/30/2021 Influenza Vaccine (Season Ended) 2025 Pneumococcal Vaccine: Peds ( 0 to 5 Years) and At-Risk Patients (6 to 49 Years) Discontinued 06/04/2018 Hepatitis B Vaccine Aged Out 07/16/2018 No longe r eligible based on patient's age to complete this topic Procedures Procedure Name Priority Date/Time Associated Diagnosis Comments HEMOGLOBIN A1C Routine 12/30/2021 3:21 PM EDT Hypertensive urgency from Last 3 Months or Most Recently Relevant to Health Maintenance Results * (ABNORMAL) Hemoglobin A1c (12/30/2021 3:21 PM EDT) Hemoglobin A1C 6.8(H) (4.0-5.6) % [facility] Comment: MONITORING: In known diabetic patients, hemoglobin A1c targets should be discussed with health care provider. DIAGNOSTIC USE: ??The [place] Diabetes Association (ADA) and the World Health Organization (WHO) recommend the use of HbA1c to diagnose diabetes using a threshold of 6.5%. Patients who have an HbA1c between 5.7% and 6.4% are considered at increased risk for developing diabetes in the future. CAUTION: Falsely low HbA1c results may be observed in patients with hemolytic anemia, homozygous forms of abnormal hemoglobin (e.g. SS, CC, SC), , recent blood loss or hemoglobin F greater than 7%. Fructosamine may be used as an alternate test in these cases. REFERENCE: ADA: Standards of Medical Care in Diabetes 2020, The Journal of Clinical and Applied Research and Education Volume 43, Supplement 1 Testing performed or reported by [facility], a Service of [facility], [address] [place] [id number] Osmany Thompson MD, Post Acute Care Nurse Practitioner [facility]# [id number] Blood specimen (specimen) Venous blood / Unknown 12/30/2021 3:21 PM EDT 12/30/2021 3:31 PM EDT us Neto Amador MD LAB BLOOD ORDERABLES Final Resul t [facility] from Last 3 Months or Most Recently Relevant to Health Maintenance Insurance [facility] ROSALBA DOMINGUEZ [id number] Care Teams Risk Management Professional Relationship Specialty Start Date End Date Stevo Agrawal NP [address] [place] [address] PCP - General Nurse Practitioner 12/23/21
== END 2024-10-12 11:10 | disposition home or self-care (01) ==
LOC: HO.HMCH 10:32
PROVIDERS: PCP Internal Medicine; Visit Provider Internal Medicine
DX: I12.9 Hypertensive chronic kidney disease with stage 1 through stage 4 chronic kidney disease, or unspecified chronic kidney disease (principal); E11.65 Type 2 diabetes mellitus with hyperglycemia; Z68.43 Body mass index [BMI] 50.0-59.9, adult; E66.2 Morbid (severe) obesity with alveolar hypoventilation; Z79.4 Long term (current) use of insulin; F32.1 Major depressive disorder, single episode, moderate; N18.4 Chronic kidney disease, stage 4 (severe); R25.2 Cramp and spasm; Z99.81 Dependence on supplemental oxygen; E78.5 Hyperlipidemia, unspecified

== ENCOUNTER → 2024-10-12 10:32 | Outpatient (BNVA) | payer OTHER, SELFPAY | PROVIDERS: PCP Internal Medicine; Visit Provider Internal Medicine | DX: E66.2 Morbid (severe) obesity with alveolar hypoventilation (principal); E11.65 Type 2 diabetes mellitus with hyperglycemia; R25.2 Cramp and spasm; I12.9 Hypertensive chronic kidney disease with stage 1 through stage 4 chronic kidney disease, or unspecified chronic kidney disease; E78.5 Hyperlipidemia, unspecified; F32.1 Major depressive disorder, single episode, moderate; N18.4 Chronic kidney disease, stage 4 (severe); R80.9 Proteinuria, unspecified; D64.9 Anemia, unspecified; E55.9 Vitamin D deficiency, unspecified; R32 Unspecified urinary incontinence; Z68.43 Body mass index [BMI] 50.0-59.9, adult; Z79.899 Other long term (current) drug therapy; Z79.4 Long term (current) use of insulin; Z99.81 Dependence on supplemental oxygen | CPT/HCPCS: 83036; 99212 ==

== ENCOUNTER 2024-11-03 08:59 | Outpatient (REF) | payer OTHER, SELFPAY ==
[2024-11-03 10:21] LABS: MANUAL DIFF FLAG NO
--- NOTE | 2024-11-03 10:40 | ECG_ITS ---
Test Reason : preop Blood Pressure : */* mmHG Vent. Rate : 68 BPM Atrial Rate : 68 BPM P-R Int : 156 ms QRS Dur : 78 ms QT Int : 412 ms P-R-T Axes : 35 12 25 degrees QTcB Int : 438 ms Sinus rhythm Otherwise normal ECG When compared with ECG of 30-Aug-2015 14:08, No significant changes seen Referred By: Asai Ray Electronically Signed By: NATE GONZALEZ MD
[2024-11-03 10:57] LABS: Hematocrit 38.2 % (37.0-47.0); Hemoglobin 11.7 g/dl (12.0-16.0); Imm Gran Abs Auto 0.07 X10*3/uL (0.00-0.03); Imm Gran Pct Auto 0.6 % (0.0-0.4); Lymphocytes Absolute Auto 1.4 X10*3/uL (1.2-4.9); Mean Corpuscular HGB Conc 30.6 g/dl (31.0-35.0); Mean Corpuscular Hemoglobin 25.7 pg (27.0-33.0); Mean Corpuscular Volume 84.0 fL (80.0-98.0); NRBC Abs Auto 0.000 X10*3/uL (0.0-0.012); NRBC Pct Auto 0.0 /100WBC (0.0-0.2); Platelet Count 338 X10*3/uL (160-400); Red Blood Count 4.55 X10*6/uL (4.20-5.50); White Blood Count 12.2 X10*3/uL (4.8-10.8)
[2024-11-03 11:33] LABS: Alanine Aminotransferase < 6 U/L (0-31); Albumin Level 2.9 g/dL (3.5-5.0); Alkaline Phosphatase 171 U/L (39-117); Anion Gap 12 (12-20); Aspartate Amino Transferase 17 U/L (5-31); Blood Urea Nitrogen 33 mg/dL (9-16); Calcium 7.5 mg/dL (8.4-10.2); Carbon Dioxide 26 mmol/L (22-29); Chloride 104 mmol/L (96-108); Cholesterol 201 mg/dL (<200); Estimated Glomerular Filt Rate 19; HDL Cholesterol 39 mg/dL (>40); Iron 42 mcg/dL (30-160); Magnesium 1.6 mg/dL (1.6-2.6); Percent Iron Saturation 24 % (15-50); Potassium 4.3 mmol/L (3.3-5.1); Sodium 138 mmol/L (135-145); Total Iron Binding Capacity 174 mcg/dL (228-428); Total Protein 7.6 g/dL (6.5-8.0); Triglycerides 142 mg/dL (<150); Unsaturated Iron Binding 132 ug/dL
[2024-11-03 11:45] LABS: Microalbum/Creatinine Ratio Ur 3758.6 ug/mg cr (<30)
[2024-11-03 12:02] LABS: Folate 5.6 ng/mL (> or = 4.0); Vitamin B12 465 pg/mL (200-900)
== END 2024-11-03 09:00 | disposition home or self-care (01) ==
LOC: HO.LAB 08:59
PROVIDERS: PCP Internal Medicine; Visit Provider Internal Medicine
DX: Z01.818 Encounter for other preprocedural examination (principal); H26.9 Unspecified cataract; E66.2 Morbid (severe) obesity with alveolar hypoventilation; Z68.43 Body mass index [BMI] 50.0-59.9, adult; E11.22 Type 2 diabetes mellitus with diabetic chronic kidney disease; I12.9 Hypertensive chronic kidney disease with stage 1 through stage 4 chronic kidney disease, or unspecified chronic kidney disease; N18.4 Chronic kidney disease, stage 4 (severe); E11.65 Type 2 diabetes mellitus with hyperglycemia; E78.5 Hyperlipidemia, unspecified; F32.1 Major depressive disorder, single episode, moderate; F41.1 Generalized anxiety disorder; Z79.4 Long term (current) use of insulin; Z79.899 Other long term (current) drug therapy; Z13.31 Encounter for screening for depression; Z13.39 Encounter for screening examination for other mental health and behavioral disorders; R80.9 Proteinuria, unspecified; D64.9 Anemia, unspecified; E53.8 Deficiency of other specified B group vitamins; R25.2 Cramp and spasm; E55.9 Vitamin D deficiency, unspecified
CPT/HCPCS: 36415; 80053; 80061; 82043; 82306; 82570; 82607; 82746; 83540; 83735; 85025; 93005; 96127; 99212

== ENCOUNTER 2024-11-03 08:59 | Outpatient (AMB) | payer OTHER, SELFPAY ==
--- NOTE | 2024-11-03 09:01 | MHC.PC.OV ---
Vital Signs 11/03/24 09:03 Height 5 ft 3 in Weight 292 lb BMI 51.7 BP 118/72 Blood Pressure Location Lt radial Position Sitting Pulse 65 Pulse Source Pulse Oximeter Pulse Oximetry (%) 95 Oxygen Delivery Method Room Air Intake Visit Reasons: [facility] 11/11 & 11/24 Physical Education Teacher Required: No Accompanied by: O[facility] CONSULTANT Allergies hydralazine Adverse Reaction (Severe, Verified 11/03/24 09:22) water retention, bloating duloxetine Adverse Reaction (Severe, Uncoded 11/03/24 09:22) nausea Medication List - Last Reconciled 11/03/24 by Asia Ray MD [adult pullups As directed] [adult wipes As directed] atorvastatin 80 mg PO DAILY [Bariatric Walker As directed] [Bariatric Wheelchair As directed] [bedpads As directed] blood pressure monitor As directed blood sugar diagnostic (FreeStyle Lite Strips) As directed 3x daily blood-glucose meter (FreeStyle Lite Meter kit) As directed buspirone 5 mg PO BID dapagliflozin propanediol (Farxiga) 10 mg PO DAILY 90 days disposable gloves As directed insulin aspart U-100 (Novolog U-100 Insulin aspart) 20 units (0.2 mL) subcut TID MDD 100u insulin glargine U-300 conc (Toujeo SoloStar U-300 Insulin) 40 units (0.1333 mL) subcut BEDTIME 90 days lactulose 10 grams (15 mL) PO BEDTIME PRN 30 days lancets (FreeStyle Lancets) As directed 3x daily losartan 50 mg PO DAILY 90 days magnesium citrate 125 mg PO BEDTIME 90 days metoprolol succinate ER 50 mg PO DAILY 30 days miscellaneous medical supply 1 ea miscellaneous 8x daily; 30 days miscellaneous medical supply 1 pair of diabetic shoes with insoles miscellaneous; omeprazole 20 mg PO QAM [oxygen tubing As directed] [pulse oximeter As directed] quetiapine 25 mg PO BEDTIME Shower Chair As directed torsemide 20 mg PO DAILY 90 days Tobacco use date assessed: 10/12/24 Dental Screening Dental Screen Date: 10/12/24 HPI HPI Comments History of Present Illness Details The patient is a 59-year-old female presenting for a preoperative evaluation for cataract extraction and intraocular lens implants. She has a history of type 2 diabetes mellitus with a recent hemoglobin A1c of 11.7%, indicating poor glycemic control. Her diabetes management includes insulin therapy, but she reports muscle cramps associated with the use of Toujeo, leading to a change to Tresiba and the addition of Farxiga. The patient also has a history of major depressive disorder managed with Seroquel and anxiety disorder managed with buspirone. She is on omeprazole for gastroesophageal reflux disease (GERD). Her medical history is significant for hypertension, managed with losartan, amlodipine, and metoprolol. She also has hyperlipidemia treated with atorvastatin and uses aspirin for coronary artery disease prophylaxis. The patient is morbidly obese with a BMI of 51.7 and requires a walker for stability. She has obesity hypoventilation syndrome. She has 5-7 Mets of ADLs. EKG pending for medical clearance as well as recent labs. Also has chronic kidney disease stage 4 in which last GFR was 24 and this will be repeated. [facility] Medical History (Updated 11/03/24 @ 09:48 by Asia Ray MD) Acute kidney injury superimposed on CKD Acute respiratory failure with hypoxia Vitreous hemorrhage of left eye Diabetes mellitus Surgical History History of ovarian cyst History of tubal ligation Family History Mother No problems noted. Father No problems noted. Social History Housing: House Alcohol intake: never Patient Tobacco Use Status: Never used Tobacco e-Cigarette/Vaping Use: Never Used Second Hand Smoke Exposure: No service: No Current occupational status: disabled Cognitive needs: Yes (cane) Hearing needs: No Vision needs: No Questionnaire PHQ-9 Over the last 2 weeks, how often have you been bothered by any of the following problems? 1. Little interest or pleasure in doing things: several days 2. Feeling down, depressed, or hopeless: several days 3. Trouble falling or staying asleep, or sleeping too much: several days 4. Feeling tired or having little energy: several days 5. Poor appetite or overeating: not at all 6. Feeling bad about yourself - or that you are a failure or have let yourself or your family down: not at all 7. Trouble concentrating on things, such as reading the newspaper or watching television: not at all 8. Moving or speaking so slowly that other people could have noticed. Or the opposite - being so fidgety or restless that you have been moving around a lot more than usual: not at all 9. Thoughts that you would be better off or of hurting yourself in some way: not at all Total score: 4 Depression Screening Interpretation: Positive Depression Screening Follow-up: Existing condition, In treatment, Community Mental Health Worker F/U and Follow-up Visit Requested Depression Screening Done: Yes 73565 - PHQ-9 Billing: Yes Source: Developed by Drs. Farhat Crane, Stefania Whitman, Joe Olivarez and colleagues, with an educational keagan from [employer]. Thrive Questionnaire Date Thrive assessed: 11/03/24 I am a: Patient What is your living situation today?: I have a steady place to live Within the past 12 months, did the food you bought not last and you didn't have the money to get more?: Never true Within the past 12 months, did you worry whether your food would run out before you got money to buy more?: Never true Do you have trouble paying for medicines?: No Do you have trouble getting transportation to medical appointments?: No Do you have trouble paying your heating and electricity bill?: No Do you have trouble taking care of your child, family member or friend?: No Do you have trouble with day-to-day activities such as bathing, preparing meals, shopping, managing finances, etc.?: No Are you currently unemployed and looking for a job?: No Are you interested in more education?: No Please select the resources that you would like help with: None Currently or been in a relationship where the following occur: No concerns reported THRIVE Score: 0 AUDIT C Alcohol Use Questionnaire (AUDIT-C) 1. How often do you have a drink containing alcohol?: Never Total Score: 0 CASANDRA-7 AMB Questionnaire CASANDRA-7 Date CSAANDRA - 7 assessed: 11/03/24 Feeling nervous, anxious, or on edge: 1 = Several days Not being able to stop or control worryin = Not at all Worrying too much about different things: 0 = Not at all Trouble relaxin = Not at all Being so restless that it is hard to sit still: 0 = Not at all Becoming easily annoyed or irritable: 0 = Not at all Feeling afraid as if something awful might happen: 0 = Not at all Total CASANDRA-7 score (0-4 normal; 5-9 mild; 10-14 moderate; 15-21 severe): 1 Source: Developed by Drs. Farhat Crane, Stefania Whitman, Joe Olivarez and colleagues, with an educational keagan from [employer]. CASANDRA-7 Assessment Billing CASANDRA-7 Assessment Tool: CASANDRA-7 Assessment 97803 Review of Systems Const All systems reviewed & are unremarkable except as noted in HPI and below Card Denies chest pain at rest, Denies chest pain with activity, Denies edema, Denies irregular heart rhythm, Denies claudication, Denies dyspnea, Denies dyspnea on exertion, Denies orthopnea, Denies paroxysmal nocturnal dyspnea and Denies slow heart rate Resp Denies cough, Denies dyspnea and Denies dyspnea on exertion GI Denies abdominal pain, Denies change in bowel habits, Denies excessive flatus, Denies nausea and Denies vomiting Denies urinary incontinence, Denies urinary hesitancy and Denies urinary urgency Neuro Denies lack of coordination Physical exam (Primary Care) Vital Signs: Last Vital Signs Pulse 65 11/03/24 09:03 BP 118/72 11/03/24 09:03 Pulse Ox 95 11/03/24 09:03 Oxygen Delivery Method Room Air 11/03/24 09:03 BMI result Body Mass Index 51.7 BMI Assessment/Plan discussion: High BMI High, discussed plan: lifestyle, weight reduction, dietary and physical activity Tobacco/Smoking Status: Tobacco use Status Tobacco use date assessed 10/12/24 11/03/24 09:06 Patient Tobacco Use Status Never used Tobacco 11/03/24 09:06 e-Cigarette/Vaping Use Never Used 11/03/24 09:06 PHQ-9: PHQ-9 Score PHQ-9: Total score 4 11/03/24 09:06 Depression Screening Interpretation: Positive Depression Screening Follow-up: Existing condition, In treatment, Community Mental Health Worker F/U and Follow-up Visit Requested Thrive Assessment: Date of Thrive Assessment Date Thrive assessed 11/03/24 11/03/24 09:06 Currently or been in a relationship where the following occur: No concerns reported Const Limitations: ambulation with walker Resp Effort & Inspection: normal respiratory effort Auscultation: clear to auscultation bilaterally Cardio Jugular venous distension: no JVD Rate: regular rate Rhythm: regular rhythm Heart sounds: S1 normal heart sound present and S2 normal heart sound present Extrem General: Yes full ROM Coding Level of Care Code Est Pt Level 4 (06502) Complex EM visit Add On G2211 Diagnoses Pre-op evaluation Z01.818 Obesity hypoventilation syndrome E66.2 CKD (chronic kidney disease) stage 4, GFR 15-29 ml/min N18.4 Uncontrolled type 2 diabetes mellitus with hyperglycemia, with long-term current use of insulin E11.65; Z79.4 Hyperlipidemia LDL goal <70 E78.5 Essential hypertension I10 Moderate major depression F32.1 CASANDRA (generalized anxiety disorder) F41.1 Morbid obesity with BMI of 50.0-59.9, adult E66.01; Z68.43 Additional Codes PHQ-9 - 11959 - PHQ-9 Billing: Yes ([id number]) CASANDRA-7 Assessment Billing - CASANDRA-7 Assessment Tool: CASANDRA-7 Assessment 49682 ([id number]) Time Spent (min) 24 Assessment & Plan Assessment & Plan (1) Pre-op evaluation: Code(s): Z01.818 - Encounter for other preprocedural examination Category: Medical (2) Obesity hypoventilation syndrome: Code(s): E66.2 - Morbid (severe) obesity with alveolar hypoventilation Category: Medical (3) CKD (chronic kidney disease) stage 4, GFR 15-29 ml/min: Code(s): N18.4 - Chronic kidney disease, stage 4 (severe) Category: Medical (4) Uncontrolled type 2 diabetes mellitus with hyperglycemia, with long-term current use of insulin: Code(s): E11.65 - Type 2 diabetes mellitus with hyperglycemia; Z79.4 - terminal supervisor (current) use of insulin Category: Medical (5) Hyperlipidemia LDL goal <70: Code(s): E78.5 - Hyperlipidemia, unspecified Category: Medical (6) Essential hypertension: Code(s): I10 - Essential (primary) hypertension Category: Medical (7) Moderate major depression: Code(s): F32.1 - Major depressive disorder, single episode, moderate Category: Medical (8) CASANDRA (generalized anxiety disorder): Code(s): F41.1 - Generalized anxiety disorder Category: Medical (9) Morbid obesity with BMI of 50.0-59.9, adult: Code(s): E66.01 - Morbid (severe) obesity due to excess calories; Z68.43 - Body mass index [BMI] 50.0-59.9, adult Category: Medical Plan The patient is scheduled for cataract extraction and intraocular lens implants, with the first procedure on November 11 and the second on November 24. Preoperative evaluations, including EKG and laboratory tests, are pending for medical clearance. For diabetes management, the patient's insulin regimen has been adjusted due to muscle cramps associated with Toujeo, and she has been switched to Droceva with the addition of Farxiga. Her hypertension, hyperlipidemia, and GERD are managed with losartan, amlodipine, metoprolol, atorvastatin, and omeprazole, respectively. The patient is advised to continue aspirin for coronary artery disease prophylaxis and to maintain her current psychiatric medications for depression and anxiety. Patient was informed and verbally consented to the use of an ambient scribe for clinic note documentation during this visit. Orders: Orders Microalbumin, Random (w Creat) Today R80.9 - Proteinuria, unspecified Comprehensive [place]. Panel Fast Today E11.65 - Type 2 diabetes mellitus with hyperglycemia, Z79.4 - terminal supervisor (current) use of insulin IRON PROFILE Today D64.9 - Anemia, unspecified Lipid Panel Today E78.5 - Hyperlipidemia, unspecified Magnesium Today R25.2 - Cramp and spasm Vitamin D 25-OH Total Today E55.9 - Vitamin D deficiency, unspecified Complete Blood Count Auto Diff Today D64.9 - Anemia, unspecified Vitamin B12 and Folate Today E53.8 - Deficiency of other specified B group vitamins ECG 12 lead EKG Today Z01.818 - Encounter for other preprocedural examination Medications: New aspirin 81 mg PO DAILY 90 tabs 1RF 90 days magnesium oxide 400 mg PO DAILY 90 caps 1RF 90 days amlodipine 10 mg PO DAILY 90 tabs 1RF 90 days insulin degludec (Tresiba FlexTouch U-100 insulin) 40 units (0.4 mL) subcut BEDTIME 36 mL 1RF 90 days Refilled torsemide 20 mg PO DAILY 90 tabs 1RF 90 days dapagliflozin propanediol (Farxiga) 10 mg PO DAILY 90 tabs 1RF 90 days Discontinued magnesium citrate Discontinued Reason: Patient Completed Course 125 mg PO BEDTIME 90 days 90 caps 1RF insulin glargine U-300 conc (Toujeo SoloStar U-300 Insulin) Discontinued Reason: Patient Completed Course 40 units (0.1333 mL) subcut BEDTIME 90 days 11.997 mL 2RF E11.9 - Type 2 diabetes mellitus without complications
[2024-11-03 09:03] VITALS: BP 118/72; PULSE 65; O2SAT 95; BMI 51.7
--- OUTSIDE RECORDS SUMMARY | 2024-11-03 09:12 | XMS_ITS | Clinical Summary ---
Author Organization [facility], Address [address] [place] [address] [place] [address] Phone Care Team Providers Care Regional Administrative Assistant Name Role Phone Stevo Agrawal NP Primary Care Provider [phone] Allergies No known active allergies Medications labetalol [...] PM EDT) Hemoglobin A1C 6.8(H) (4.0-5.6) % [facility] Comment: MONITORING: In known diabetic patients, hemoglobin A1c targets should be discussed with health care provider. DIAGNOSTIC USE: The [place] Diabetes Association (ADA) and the World Health [...] Supplement 1 Testing performed or reported by [facility], a Service of [facility], [address] [place] [id number] Osmany Thompson MD, Credit Collector [facility]# [id number] Blood specimen (specimen) Venous blood / Unknown 12/30/2021 3:21 PM EDT 12/30/2021 3:31 PM EDT us Neto Amador MD LAB BLOOD ORDERABLES Final Resul t [facility] from Last 3 Months or Most Recently Relevant to Health Maintenance Insurance [facility] [place]ALBA DOMINGUEZ [id number] Care Teams Regional Administrative Assistant Relationship Specialty Start Date End Date Stevo Agrawal NP [address] [place] [address] PCP - General Nurse Practitioner 12/23/21
--- OUTSIDE RECORDS SUMMARY | 2024-11-03 09:12 | XMS_ITS | Clinical Summary ---
Author Organization [facility] Address [address] [place] [address] Care Team Providers Care Wind Farm Operations Manager Name Role Phone [facility] Primary Care Provider [phone] Source Comments PLEASE NOTE, if this patient is a minor, it may be UNLAWFUL to discuss sensitive information that is contained in these records (such as FAMILY PLANNING, MENTAL HEALTH or SUBSTANCE ABUSE) with the minor patient's parent or other person without the patient's specific authorization.[facility] Allergies No known active allergies Medications hydroCHLOROthiazi de (HYDRODIURIL) 25 mg tabletIndications :Essential hypertension Take 1 Tab by mouth once daily 90 Tab 1 8 Active metFORMIN (GLUCOPHAGE) 500 mg tabletIndications :Type 2 diabetes mellitus with complication, with long-term current use of insulin (CMS & HHS-[facility]) Take 1 Tab by mouth 2 (two) times daily 180 Tab 1 8 Active hydrOXYzine HCl (ATARAX) 25 mg tablet PER PSYCH 3 8 Active buPROPion HCl (WELLBUTRIN XL) 300 mg 24 hr tablet Take 300 mg by mouth every morning PER PSYCH 3 8 Active doxepin (SINEQUAN) 25 mg capsule Take 25 mg by mouth nightly at bedtime PER PSYCH 3 8 Active QUEtiapine (SEROQUEL) 25 mg tablet PER PSYCH 3 8 Active alcohol swabsIndications: Type 2 diabetes mellitus with complication, with long-term current use of insulin (CMS & HHS-HCC) Check FBS TID before meals E11.65 100 Each 11 8 Active insulin detemir U-100 (LEVEMIR U-100 INSULIN) 100 unit/mL injectionIndicati ons:Type 2 diabetes mellitus with complication, with long-term current use of insulin ([facility]) Inject 15 Units into the skin nightly at bedtime 10 mL 2 8 Active blood sugar diagnostic stripsIndications :Type 2 diabetes mellitus with complication, with long-term current use of insulin ([facility]) Check FBS TID before meals E11.65 Freestyle 100 Each 11 8 Active blood-glucose meter monitoring kitIndications:Ty pe 2 diabetes mellitus with complication, with long-term current use of insulin ([facility]) Check FBS TID before meals E11.65 Freestyle 1 Each 8 Active lancetsIndication s:Type 2 diabetes mellitus with complication, with long-term current use of insulin ([facility]) Check FBS TID before meals E11.65 Freestyle 100 Each 11 8 Active losartan (COZAAR) 100 mg tabletIndications :Essential hypertension TAKE 1 TABLET BY MOUTH EVERY DAY 90 Tab 1 8 Active omeprazole (PRILOSEC) [address] capsuleIndication s:Gastroesophagea l reflux disease, esophagitis presence not specified TAKE 1 CAPSULE BY MOUTH EVERY MORNING BEFORE BREAKFAST 90 Cap 8 Active atorvastatin (LIPITOR) 40 mg tabletIndications :Dyslipidemia TAKE 1 TABLET BY MOUTH EVERY DAY 90 Tab 1 9 Active Social History Tobacco Use Types Packs/Day Years Used Date Smoking Tobacco: Never Smokeless Tobacco: Never Alcohol Use Standard Drinks/Week Comments No 0 (1 standard drink = 0.6 oz pur e alcohol) Social Connections Answer Date Recorded Social Connections and Isolation 0 12/26/2018 Financial Resource Strain Answer Date R ecorded Financial Resource Strain 0 2018 Stress Answer Date Recorded Stress 0 12/26/2018 Physical Activity Answer Date Recorded Physical Activity 0 12/26/2018 Food Insecurity Answer Date Recorded Food 0 12/26/2018 Transportation Needs Answer Date Record ed Transportation 0 12/26/2018 Housing Stability Answer Date Recorded Housing 0 12/26/2018 Safety and Environment Answer Date Rick rded Safety 0 12/26/2018 Utilities Answer Date Recorded Utilities 0 12/26/2018 Employment Answer Date Recorded Employment 0 12/26/2018 Comments No Sex and Gender Information Value Date Recorded Sex Assigned at Female 10/12/2017 2:37 PM PDT Legal Sex Female 11:08 AM PST Gender Identity Female 10/12/2017 2:37 PM PDT Sexual Orientation Don't know 10/12/2017 2: 37 PM PDT Last Filed Vital Signs Vital Sign Reading Time Taken Comments Blood Pressure 140/86 10/12/2017 3:25 PM EDT Pulse 88 10/12/2017 3:25 PM EDT Temperature 37.2 C (99 F) 10/12/2017 3:25 PM EDT Respiratory Rate 20 10/12/2017 3:25 PM EDT Oxygen Saturation - - Inhaled Oxygen Concentration - - Weight 120.2 kg (265 lb) 10/12/2017 3:25 PM EDT Height 162 cm (5' 3.78 ) 10/12/2017 3:25 PM EDT Body Mass Index 45.8 10/12/2017 3:25 PM EDT Plan of Treatment Not on file Insurance ON LICENSE OF [facility] [place] [address] [address] [address] DENTAL MEDICARE - [place] Care Teams Wind Farm Operations Manager Relationship Specialty Start Date End Date Lashon Holloway FNP [facility] [place] [address] PCP - General Family Medicine, RESIDENTIAL FIELD MANAGER 06/15/17
--- OUTSIDE RECORDS SUMMARY | 2024-11-03 09:12 | XMS_ITS | Clinical Summary ---
Author Organization [facility] ity Address [address] [place] [address] Care Team Providers Care Dispatcher Tow Truck Name Role Phone Unavailable Primary Care Provider Unavailabl e Social History Tobacco Use Types Packs/Day Years Used Date Smoking Tobacco: Never Assessed Comments Unknown Sex and Gender Information Value Date Recorded Sex Assigned at Not on file Legal Sex Female 9:13 AM EST Gender Identity Not on file Sexual Orientation Not on file Plan of Treatment Health Maintenance Due Date Last Done Comments Breast Cancer Screening 1965 DTaP,Tdap,and Td Vaccines (1 - Tdap) 08/09/1982 Cervical Cancer Screening: P ap Smear 08/09/1984 Pneumococcal Vaccine: 50+ Ye ars (1 of 1 - PCV) 08/09/2013 Zoster Vaccines (1 of 2) 08/09/2013 COVID-19 Vaccine ( - 2023-2 5 season) 2024 Influenza Vaccine (Season Ended) 2025 RSV Immunization Adult Patie nts (1 - 1-dose 75+ series) 08/09/2038 HIB Vaccines Aged Out No longer eligi ble based on patient's age to complete this topic HPV Vaccines Aged Out No longer eligi ble based on patient's age to complete this topic Hepatitis A Vaccines Aged Out No long er eligible based on patient's age to complete this topic Hepatitis B Vaccines Aged Out No long er eligible based on patient's age to complete this topic IPV Vaccines Aged Out No longer eligi ble based on patient's age to complete this topic MMR Vaccines Aged Out No longer eligi ble based on patient's age to complete this topic Meningococcal ACWY Vaccine Aged Out N o longer eligible based on patient's age to complete this topic Meningococcal B Vaccine Aged Out No l onger eligible based on patient's age to complete this topic Pneumococcal Vaccine: Pediat rics (0 to 5 Years) and At-Risk Patients (6 to 64 Years) Aged Out No longer eligible b ased on patient's age to complete this topic RSV Immunization Patients Un brielle 20 months Aged Out No longer eligible b ased on patient's age to complete this topic Varicella Vaccines Aged Out No longer eligible based on patient's age to complete this topic
== END 2024-11-03 09:37 | disposition home or self-care (01) ==
LOC: HO.HMCH 09:00
PROVIDERS: PCP Internal Medicine; Visit Provider Internal Medicine
DX: I12.9 Hypertensive chronic kidney disease with stage 1 through stage 4 chronic kidney disease, or unspecified chronic kidney disease (principal); E66.2 Morbid (severe) obesity with alveolar hypoventilation; N18.4 Chronic kidney disease, stage 4 (severe); E11.65 Type 2 diabetes mellitus with hyperglycemia; Z79.4 Long term (current) use of insulin; F32.1 Major depressive disorder, single episode, moderate; Z68.43 Body mass index [BMI] 50.0-59.9, adult; E66.01 Morbid (severe) obesity due to excess calories; Z01.818 Encounter for other preprocedural examination; F41.1 Generalized anxiety disorder; E78.5 Hyperlipidemia, unspecified

== ENCOUNTER → 2024-11-03 10:40 | Outpatient (BNV) | payer OTHER, SELFPAY | PROVIDERS: PCP Internal Medicine; Visit Provider Internal Medicine Cardiovascular Disease | DX: Z13.6 Encounter for screening for cardiovascular disorders (principal); Z01.810 Encounter for preprocedural cardiovascular examination | CPT/HCPCS: 93010 ==

== ENCOUNTER → 2024-12-06 23:59 | Outpatient (BNV) | payer OTHER, SELFPAY | PROVIDERS: PCP Internal Medicine; Visit Provider Internal Medicine | DX: I65.01 Occlusion and stenosis of right vertebral artery (principal); E78.5 Hyperlipidemia, unspecified; R42 Dizziness and giddiness | CPT/HCPCS: G0180 ==

== ENCOUNTER 2024-12-23 09:20 | Outpatient (AMB) | payer OTHER, SELFPAY ==
--- NOTE | 2024-12-23 09:22 | A.OFFPC_ITS ---
Vital Signs 12/23/24 09:24 Height 5 ft 3 in Weight 297 lb 6 oz BMI 52.7 BP 130/70 Blood Pressure Location Lt brachial Position Sitting Pulse 65 Pulse Source Pulse Oximeter Temp 97.3 F Temp Source Temporal Artery Scan Pulse Oximetry (%) 86 L Oxygen Delivery Method Nasal Cannula Intake Visit Reasons: [facility] 11/25 Stroke Intake Note: Patient is here for hospital discharge follow up. Patient was discharged from [facility] on 11/25/24. Police Dispatcher Required: No Geomatics Professor: Present Accompanied by: DRILLER HAND Allergies hydralazine Adverse Reaction (Severe, Verified 12/23/24 09:23) water retention, bloating duloxetine Adverse Reaction (Severe, Uncoded 12/23/24 09:23) nausea Tobacco use date assessed: 12/23/24 Dental Screening Dental Screen Date: 10/12/24 HPI HPI Comments History of Present Illness Details 59 y/o Female patient who presents to [facility] today for HDF. Pt was admitted at [facility] on 11/22 - 11/25 for an evaluation and treatment of another CVA. She is being managed by [facility] Neurology. They had added Plavix and ASA. Neurology recommended and ordered Holter monitor for patient - need to monitor Blood pressures closely with goal less than 120/80. Per Patient today she has not receive any monitor at home. Provided Information for patient to call and inquire. 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 [facility] Medical History (Updated 12/23/24 @ 09:50 by Candace Armstrong NP) Acute cerebrovascular accident Acute kidney injury superimposed on CKD Acute respiratory failure with hypoxia Vitreous hemorrhage of left eye Diabetes mellitus Surgical History History of ovarian cyst History of tubal ligation Family History Mother No problems noted. Father No problems noted. Social History Housing: House Alcohol intake: never Patient Tobacco Use Status: Never used Tobacco e-Cigarette/Vaping Use: Never Used Second Hand Smoke Exposure: No service: No Current occupational status: disabled Cognitive needs: Yes (cane) Hearing needs: No Vision needs: No Questionnaire PHQ-9 Over the last 2 weeks, how often have you been bothered by any of the following problems? 1. Little interest or pleasure in doing things: several days 2. Feeling down, depressed, or hopeless: several days 3. Trouble falling or staying asleep, or sleeping too much: several days 4. Feeling tired or having little energy: not at all 5. Poor appetite or overeating: not at all 6. Feeling bad about yourself - or that you are a failure or have let yourself or your family down: not at all 7. Trouble concentrating on things, such as reading the newspaper or watching television: not at all 8. Moving or speaking so slowly that other people could have noticed. Or the opposite - being so fidgety or restless that you have been moving around a lot more than usual: not at all 9. Thoughts that you would be better off or of hurting yourself in some way: not at all Total score: 3 Depression Screening Interpretation: Positive Depression Screening Done: Yes Source: Developed by Drs. Farhat Crane, Stefania Whitman, Joe Olivarez and colleagues, with an educational keagan from [facility]. Thrive Questionnaire Date Thrive assessed: 11/03/24 I am a: Patient What is your living situation today?: I have a steady place to live Within the past 12 months, did the food you bought not last and you didn't have the money to get more?: Never true Within the past 12 months, did you worry whether your food would run out before you got money to buy more?: Never true Do you have trouble paying for medicines?: No Do you have trouble getting transportation to medical appointments?: No Do you have trouble paying your heating and electricity bill?: No Do you have trouble taking care of your child, family member or friend?: No Do you have trouble with day-to-day activities such as bathing, preparing meals, shopping, managing finances, etc.?: No Are you currently unemployed and looking for a job?: No Are you interested in more education?: No Please select the resources that you would like help with: None Currently or been in a relationship where the following occur: No concerns reported THRIVE Score: 0 AUDIT C Alcohol Use Questionnaire (AUDIT-C) 1. How often do you have a drink containing alcohol?: Never Total Score: 0 CASANDRA-7 AMB Questionnaire CASANDRA-7 Date CASANDRA - 7 assessed: 11/03/24 Feeling nervous, anxious, or on edge: 0 = Not at all Not being able to stop or control worryin = Not at all Worrying too much about different things: 0 = Not at all Trouble relaxin = Not at all Being so restless that it is hard to sit still: 0 = Not at all Becoming easily annoyed or irritable: 0 = Not at all Feeling afraid as if something awful might happen: 0 = Not at all Total CASANDRA-7 score (0-4 normal; 5-9 mild; 10-14 moderate; 15-21 severe): 0 Source: Developed by Drs. Farhat Crane, Stefania Whitman, Joe Olivarez and colleagues, with an educational keaagn from [facility]. Review of Systems Const All systems reviewed & are unremarkable except as noted in HPI and below Physical exam (Primary Care) Vital Signs: Last Vital Signs Temp 97.3 F 12/23/24 09:24 Pulse 65 12/23/24 09:24 BP 130/70 12/23/24 09:24 Pulse Ox 86 L 12/23/24 09:24 Oxygen Delivery Method Nasal Cannula 12/23/24 09:24 BMI result Body Mass Index 52.7 Tobacco/Smoking Status: Tobacco use Status Tobacco use date assessed 12/23/24 12/23/24 09:28 Patient Tobacco Use Status Never used Tobacco 12/23/24 09:28 e-Cigarette/Vaping Use Never Used 12/23/24 09:28 PHQ-9: PHQ-9 Score PHQ-9: Total score 3 12/23/24 09:28 Depression Screening Interpretation: Positive Thrive Assessment: Date of Thrive Assessment Date Thrive assessed 11/03/24 12/23/24 09:28 Currently or been in a relationship where the following occur: No concerns reported Const General: no acute distress Nutritional Appearance: obese morbidly obese Orientation/consciousness: patient oriented x3 Limitations: ambulation with walker Resp Effort & Inspection: normal respiratory effort Cardio Heart sounds: S1 normal heart sound present and S2 normal heart sound present Neuro General: patient oriented x3 Coding Level of Care Code Est Pt Level 4 (46531) Diagnoses Acute cerebrovascular accident I63.9 Time Spent (min) 20 Assessment & Plan Assessment & Plan (1) Acute cerebrovascular accident: Code(s): I63.9 - Cerebral infarction, unspecified Category: Medical Plan: Stable. managed by [facility].
[2024-12-23 09:24] VITALS: BP 130/70; PULSE 65; TEMP 36.3; O2SAT 86; BMI 52.7
--- OUTSIDE RECORDS SUMMARY | 2024-12-23 09:26 | XMS_ITS | Clinical Summary ---
Author Organization [facility], Address [address] [place] [address] [place] [address] Phone Care Team Providers Care Personnel And Payroll Technician Name Role Phone Stevo Agrawal NP Primary Care Provider [phone] Allergies No known active allergies Medications labetalol [...] Diabetes: Hemoglobin A1C 04/01/2022 12/30/2021 Influenza Vaccine (#1) 2025 Pneumococcal Vaccine: Peds ( 0 to [...] PM EDT) Hemoglobin A1C 6.8(H) (4.0-5.6) % [facility] Comment: MONITORING: In known diabetic patients, hemoglobin A1c targets should be discussed with health care provider. DIAGNOSTIC USE: The [place] [employer] (ADA) and the World Health [...] Supplement 1 Testing performed or reported by [facility], a Service of [facility], [address] [place] [id number] Osmany Thompson MD, Firm Administrator [facility]# [id number] Blood specimen (specimen) Venous blood / Unknown 12/30/2021 3:21 PM EDT 12/30/2021 3:31 PM EDT us Neto Amador MD LAB BLOOD ORDERABLES Final Resul t [facility] from Last 3 Months or Most Recently Relevant to Health Maintenance Insurance [facility] ROSALBA DOMINGUEZ [id number] Care Teams Personnel And Payroll Technician Relationship Specialty Start Date End Date Stevo Agrawal NP [address] [place] [address] PCP - General Nurse Practitioner 12/23/21
--- OUTSIDE RECORDS SUMMARY | 2024-12-23 09:26 | XMS_ITS | Clinical Summary ---
Author Organization [facility] Address [address] [place] [address] Care Team Providers Care Carbon Cleaner Name Role Phone Lashon Holloway [facility] Primary Care Provider [phone] Source Comments PLEASE NOTE, if this patient [...] long-term current use of insulin (CMS & [facility]HS-[facility]) Take 1 Tab by mouth 2 (two) [...] complication, with long-term current use of insulin ([facility]) Inject 15 Units into the skin nightly at bedtime 10 mL 2 8 Active blood sugar diagnostic stripsIndications :Type 2 diabetes mellitus with complication, with long-term current use of insulin ([facility]) Check FBS TID before meals E11.65 Freestyle 100 Each 11 8 Active blood-glucose meter monitoring kitIndications:Ty pe 2 diabetes mellitus with complication, with long-term current use of insulin ([facility]) Check FBS TID before meals E11.65 Freestyle 1 Each 8 Active lancetsIndication s:Type 2 diabetes mellitus with complication, with long-term current use of insulin ([facility]) Check FBS TID before meals E11.65 Freestyle [...] Plan of Treatment Not on file Insurance [facility] [place] [address] DENTAL MEDICARE - [place] MEDICA[place] Care Teams Carbon Cleaner Relationship Specialty Start Date End Date Lashon Holloway FNP [facility] [place] [address] PCP - General Family Medicine, CHEMICAL PROCESSOR 06/15/17
--- OUTSIDE RECORDS SUMMARY | 2024-12-23 09:26 | XMS_ITS | Clinical Summary ---
Author Organization [facility] it Address [address] [place] [address] Care Team Providers Care Propulsion Systems Engineer Name Role Phone Unavailable Primary Care Provider [...] Last Done Comments Breast Cancer Screening 1965 Cervical Cancer Screening: Pap Smear 08/09/1984 Zoster Vaccines (1 of 2) 08/09/2013 Hepatitis B Vaccines (2 of 3 - 19+ 3-dose series) 08/13/2018 07/16/2018 Pneumococcal Vaccine: 50+ Years (2 of 2 - PCV) 06/04/2019 06/04/2018 COVID-19 Vaccine (1 - 2023- season) 2024 Depression Screening 05/04/2024 Influenza Vaccine (#1) 2025 2, 02/03/2019, 06/04/2018, Additional history exists DTaP,Tdap,and Td Vaccines (2 - Td or Tdap) 06/04/2028 06/04/2018 RSV Immunization Adult Patients (1 - 1-dose 75+ series) 08/09/2038 HIB [...] to complete this topic RSV Immunization Patients Under 20 months Aged Out No longer eligible based on patient's age to complete this topic Varicella Vaccines Aged Out No longer eligible based on patient's age to complete this topic
== END 2024-12-23 10:26 | disposition home or self-care (01) ==
LOC: HO.HMCH 09:21
PROVIDERS: PCP Internal Medicine; Visit Provider Nurse Practitioner Family
DX: I63.9 Cerebral infarction, unspecified (principal)

== ENCOUNTER → 2024-12-23 09:20 | Outpatient (BNVA) | payer OTHER, SELFPAY | PROVIDERS: PCP Internal Medicine; Visit Provider Nurse Practitioner Family | DX: Z86.73 Personal history of transient ischemic attack (TIA), and cerebral infarction without residual deficits (principal) | CPT/HCPCS: 96127; 99212 ==

== ENCOUNTER 2025-02-20 10:30 | Outpatient (AMB) | payer OTHER, SELFPAY ==
[2025-02-20 10:40] VITALS: PULSE 81; RESP 18; TEMP 36.2; O2SAT 87; BMI 51.1
--- NOTE | 2025-02-20 10:40 | A.OFFPC_ITS ---
Vital Signs 02/20/25 10:40 Height 5 ft 3 in Weight 288 lb 6 oz BMI 51.1 Blood Pressure Location Lt brachial Position Sitting Respiration 18 Pulse 81 Pulse Source Pulse Oximeter Temp 97.1 F Temp Source Temporal Artery Scan Pulse Oximetry (%) 87 L Oxygen Delivery Method Room Air Intake Visit Reasons: PE Restaurant Server Required: No Accompanied by: Self / Same As Patient Allergies hydralazine Adverse Reaction (Severe, Verified 02/20/25 11:05) water retention, bloating duloxetine Adverse Reaction (Severe, Uncoded 02/20/25 11:05) nausea Medication List - Last Reconciled 02/20/25 by Asia Ray MD [adult pull ups As directed] [adult wipes As directed] amlodipine 10 mg PO DAILY 90 days aspirin 81 mg PO DAILY 90 days atorvastatin 80 mg PO DAILY [Bariatric Walker As directed] [Bariatric Wheelchair As directed] [bedpads As directed] blood pressure monitor As directed blood sugar diagnostic (FreeStyle Lite Strips) As directed 3x daily blood-glucose meter (FreeStyle Lite Meter kit) As directed buspirone 5 mg PO BID 90 days calcium acetate 667 mg PO BID 90 days dapagliflozin propanediol (Farxiga) 10 mg PO DAILY 90 days dapagliflozin propanediol (Farxiga) 10 mg PO DAILY 90 days disposable gloves As directed ergocalciferol (vitamin D2) 1,250 mcg PO QWEEK 90 days insulin aspart U-100 (Novolog U-100 Insulin aspart) 20 units (0.2 mL) subcut TID MDD 100u insulin degludec (Tresiba FlexTouch U-100 insulin) 40 units (0.4 mL) subcut BEDTIME 90 days lactulose 10 grams (15 mL) PO BEDTIME PRN 30 days lancets (FreeStyle Lancets) As directed 3x daily losartan 50 mg PO DAILY 90 days magnesium oxide 400 mg PO DAILY 90 days metoprolol succinate ER 50 mg PO DAILY 30 days miscellaneous medical supply 1 ea miscellaneous 8x daily; 30 days miscellaneous medical supply 1 pair of diabetic shoes with insoles mi scellaneous; omeprazole 20 mg PO QAM [oxygen tubing As directed] [pulse oximeter As directed] quetiapine 25 mg PO BEDTIME Shower Chair As directed torsemide 20 mg PO DAILY 90 days Tobacco use date assessed: 02/20/25 Dental Screening Dental Screen Date: 02/20/25 Did you have a dental visit in the last 12 months?: No Did you have a dental problem in the last 6 months where you did not have access to dental care?: No Was dental information given to patient?: No HPI HPI Comments History of Present Illness Details The patient is a 59-year-old female presenting with an annual physical examination and management of chronic conditions. She has a history of diabetes mellitus, with her last hemoglobin A1c recorded at 11.7%, indicating poor glycemic control. The patient reports diabetic retinopathy, with bleeding in the eyes, and is awaiting surgical intervention pending medical clearance. The patient is also managing hypertension and hyperlipidemia, for which she is on multiple medications including amlodipine and atorvastatin. She has a history of proteinuria, which requires further evaluation by a supervisor paste mixing. She has undergone ovarian cyst surgery and tubal ligation in the past. The patient denies smoking and alcohol consumption, having abstained from alcohol for 12 years due to anglican conversion. Preventative care measures discussed include a colon cancer screening with a stool test, which will be conducted at home. [facility] Medical History Acute cerebrovascular accident Acute kidney injury superimposed on CKD Acute respiratory failure with hypoxia Vitreous hemorrhage of left eye Diabetes mellitus Surgical History History of ovarian cyst History of tubal ligation Family History (Updated 02/20/25 @ 11:11 by Asia Ray MD) Mother No problems noted. Father Throat cancer Social History Housing: House Alcohol intake: never Patient Tobacco Use Status: Never used Tobacco e-Cigarette/Vaping Use: Never Used Second Hand Smoke Exposure: No service: No Current occupational status: disabled Cognitive needs: Yes (cane) Hearing needs: No Vision needs: No Questionnaire Thrive Questionnaire Date Thrive assessed: 12/23/24 I am a: Patient What is your living situation today?: I have a steady place to live Within the past 12 months, did the food you bought not last and you didn't have the money to get more?: Never true Within the past 12 months, did you worry whether your food would run out before you got money to buy more?: Never true Do you have trouble paying for medicines?: No Do you have trouble getting transportation to medical appointments?: No Do you have trouble paying your heating and electricity bill?: No Do you have trouble taking care of your child, family member or friend?: No Do you have trouble with day-to-day activities such as bathing, preparing meals, shopping, managing finances, etc.?: No Are you currently unemployed and looking for a job?: No Are you interested in more education?: No Please select the resources that you would like help with: None Currently or been in a relationship where the following occur: No concerns reported THRIVE Score: 0 CASANDRA-7 AMB Questionnaire CASANDRA-7 Date CASANDRA - 7 assessed: 11/03/24 Source: Developed by Drs. Farhat Crane, Stefania Whitman, Joe Olivarez and colleagues, with an educational keagan from [employer]. Review of Systems Const All systems reviewed & are unremarkable except as noted in HPI and below Card Denies chest pain at rest, Denies chest pain with activity, Denies edema, Denies irregular heart rhythm, Denies claudication, Denies dyspnea, Denies dyspnea on exertion, Denies orthopnea, Denies paroxysmal nocturnal dyspnea and Denies slow heart rate Resp Denies cough, Denies dyspnea and Denies dyspnea on exertion GI Denies abdominal pain, Denies change in bowel habits, Denies excessive flatus, Denies nausea and Denies vomiting Denies urinary incontinence, Denies urinary hesitancy and Denies urinary urgency Musc Denies atrophy, Denies deformity and Denies limited range of motion Skin/Breast Denies bleeding lesions, Denies changing lesions and Denies rash Physical exam (Primary Care) Vital Signs: Last Vital Signs Temp 97.1 F 02/20/25 10:40 Pulse 81 02/20/25 10:40 Resp 18 02/20/25 10:40 Pulse Ox 87 L 02/20/25 10:40 Oxygen Delivery Method Room Air 02/20/25 10:40 BMI result Body Mass Index 51.1 Tobacco/Smoking Status: Tobacco use Status Tobacco use date assessed 02/20/25 02/20/25 10:56 Patient Tobacco Use Status Never used Tobacco 02/20/25 10:40 e-Cigarette/Vaping Use Never Used 02/20/25 10:40 Thrive Assessment: Date of Thrive Assessment Date Thrive assessed 12/23/24 02/20/25 10:40 Currently or been in a relationship where the following occur: No concerns reported [facility] Head: Yes normal to inspection, Yes normocephalic and Yes atraumatic Ears: external ears normal Eyes General: appearance normal, both eyes and all related structures Eyelids: Yes eyelids normal Conjunctivae: conjunctivae normal Neck Neck: Yes normal visual inspection and Yes supple Resp Effort & Inspection: normal respiratory effort Auscultation: clear to auscultation bilaterally Cardio Jugular venous distension: no JVD Rate: regular rate Rhythm: regular rhythm Heart sounds: S1 normal heart sound present and S2 normal heart sound present GI Inspection: Yes normal to inspection Palpation (GI): Soft to palpation and nontender Auscultation: normal bowel sounds Skin General skin exam: no rashes or lesions noted Neuro General: no focal motor deficits Extrem General: Yes full ROM Psych Appearance: grossly normal Results AMB Hemoglobin A1c AMB Hemoglobin A1c 11.1 % Last Edit by JUDI Sunshine on 02/20/25 11:2 8 Results Reviewed Results Reviewed: Laboratory Last Values Hgb A1c (Clinic) 11.1 % (4.0-6.0) H 02/20/25 11:16 Coding Level of Care Code Est Pt Level 3 (02914) Est Pt Prev Care 40-64y(17203) Diagnoses Physical exam Z00.00 Morbid obesity with BMI of 50.0-59.9, adult E66.01; Z68.43 Uncontrolled type 2 diabetes mellitus with hyperglycemia, with long-term current use of insulin E11.65; Z79.4 Obesity hypoventilation syndrome E66.2 Microalbuminuria R80.9 Time Spent (min) 33 Assessment & Plan Assessment & Plan (1) Physical exam: Code(s): Z00.00 - Encounter for general adult medical examination without abnormal findings Category: Medical (2) Morbid obesity with BMI of 50.0-59.9, adult: Code(s): E66.01 - Morbid (severe) obesity due to excess calories; Z68.43 - Body mass index [BMI] 50.0-59.9, adult Category: Medical (3) Uncontrolled type 2 diabetes mellitus with hyperglycemia, with long-term current use of insulin: Code(s): E11.65 - Type 2 diabetes mellitus with hyperglycemia; Z79.4 - extermination supervisor (current) use of insulin Category: Medical (4) Obesity hypoventilation syndrome: Code(s): E66.2 - Morbid (severe) obesity with alveolar hypoventilation Category: Medical (5) Microalbuminuria: Code(s): R80.9 - Proteinuria, unspecified Category: Medical Plan Plan 1. Diabetes Mellitus The patient's diabetes mellitus is poorly controlled with a recent hemoglobin A1c of 11.7%. The plan includes increasing the dose of Tresiba to 45 units to improve glycemic control and prevent complications such as diabetic retinopathy. 2. Hypertension The patient is currently on amlodipine and losartan for hypertension management. Blood pressure monitoring and medication adherence are emphasized to maintain optimal control. 3. Hyperlipidemia The patient is on atorvastatin 80 mg for hyperlipidemia management. Regular lipid profile monitoring is recommended to assess treatment efficacy. 4. Diabetic Retinopathy The patient has diabetic retinopathy with eye bleeding and is awaiting surgical intervention. Medical clearance is required prior to surgery to ensure optimal glycemic control and reduce surgical risks. 5. Proteinuria The patient has proteinuria and requires further evaluation by a supervisor paste mixing. Renal function monitoring and potential adjustment of antihypertensive therapy may be necessary. 6. Physical exam The patient is advised to perform a colon cancer screening using a stool test at home. The test kit will be sent to her home, and she is instructed to follow the provided guidelines for completion. Orders: Orders Lipid Panel Today E78.5 - Hyperlipidemia, unspecified Vitamin D 25-OH Total Today E55.9 - Vitamin D deficiency, unspecified Vitamin B12 and Folate Today E53.8 - Deficiency of other specified B group vitamins AMB Hemoglobin A1c Today E11.65 - Type 2 diabetes mellitus with hyperglycemia, Z79.4 - detention (current) use of insulin Microalbumin, Random (w Creat) Today R80.9 - Proteinuria, unspecified Comprehensive [place]. Panel Fast Today I63.9 - Cerebral infarction, unspecified Referrals Cologuard Test Z12.11 - Encounter for screening for malignant neoplasm of colon, Z12.12 - Encounter for screening for malignant neoplasm of rectum Endocrinology Referral E11.65 - Type 2 diabetes mellitus with hyperglycemia, Z79.4 - detention (current) use of insulin Nephrology Referral R80.9 - Proteinuria, unspecified Medications: New nitrofurantoin macrocrystal must administer with a meal/food 100 mg PO BID 10 caps 0RF 5 days Changed From insulin degludec (Tresiba FlexTouch U-100 insulin) 40 units (0.4 mL) subcut BEDTIME 90 days 36 mL 1RF To insulin degludec (Tresiba FlexTouch U-100 insulin) 45 units (0.45 mL) subcut BEDTIME 40.5 mL 1RF 90 days
== END 2025-02-20 11:28 | disposition home or self-care (01) ==
LOC: HO.HMCH 10:30
PROVIDERS: PCP Internal Medicine; Visit Provider Internal Medicine
DX: Z00.00 Encounter for general adult medical examination without abnormal findings (principal); E11.65 Type 2 diabetes mellitus with hyperglycemia; E66.01 Morbid (severe) obesity due to excess calories; Z68.43 Body mass index [BMI] 50.0-59.9, adult; Z79.4 Long term (current) use of insulin; E66.2 Morbid (severe) obesity with alveolar hypoventilation; R80.9 Proteinuria, unspecified

== ENCOUNTER → 2025-02-20 10:30 | Outpatient (BNVA) | payer OTHER, SELFPAY | PROVIDERS: PCP Internal Medicine; Visit Provider Internal Medicine | DX: Z00.00 Encounter for general adult medical examination without abnormal findings (principal); E11.65 Type 2 diabetes mellitus with hyperglycemia; I10 Essential (primary) hypertension; E78.5 Hyperlipidemia, unspecified; R80.9 Proteinuria, unspecified; E66.2 Morbid (severe) obesity with alveolar hypoventilation; Z68.43 Body mass index [BMI] 50.0-59.9, adult; Z79.4 Long term (current) use of insulin; Z79.899 Other long term (current) drug therapy | CPT/HCPCS: 83036; 99212; 99396 ==